=== PATIENT | female | born 1995 | race Caucasian/White ===

== ENCOUNTER 2017-05-16 21:40 | Emergency (ER) | payer MEDICAID ==
[~2017-05-16] VITALS: Ht 157.5 cm; Wt 83.9 kg
[~2017-05-16 21:40] MED LIST: CIPROFLOXACIN500 M2 ORAL; IBUPROFEN600 MG ORAL; NORCO 5-325 TA1 EACH ORAL
[2017-05-16 22:18] LABS: APPEARANCE,URINE SLIGHTLY CLOUDY; KETONES,URINE NEGATIVE (NEGATIVE); LEUKOCYTE ESTERASE ,URINE 3+ (NEGATIVE); NITRITE,URINE POSITIVE (NEGATIVE); PH,URINE 7 (4.5-8.0); PROTEIN,URINE 3+ (NEGATIVE); UROBILINOGEN,URINE NORMAL MG/DL (0.0-1.0)
[2017-05-16 22:30] LABS: RBC,URINE 20-30 /HPF (0 - 2); WBC,URINE 60-80 /HPF (0 - 2)
[2017-05-16 22:31] LABS: BACTERIA,URINE MODERATE /HPF; SQUAMOUS EPITHELIAL CELL,UR MODERATE /LPF (NONE/OCC)
[2017-05-16] MEDS ORDERED: KEFLEX500 MG ORAL (22:33)
[2017-05-16] MEDS ORDERED: ACETAMINOPHEN-1 EAC1 ORAL (22:33)
[2017-05-16 22:41] VITALS: BP 134/88
[2017-05-16] MEDS ORDERED: Cephalexin 500mg cap ORAL ONE (22:45)
--- NOTE | 2017-05-16 23:35 | Emergency Room Report ---
History of Present Illness General Chief Complaint: Lower Back Pain or Injury Source: Patient Present Illness HPI 21-year-old female presents ED complaining of left flank pain. States having pain on and off for the last 3 weeks. Worse today. 10 out of 10, sharp, nonradiating. Denies fevers or chills. Denies nausea or vomiting. Denies dysuria or hematuria. Denies any back injury. No other aggravating or leading factors. Denies any other associated symptoms Allergies: Coded Allergies: SULFA (SULFONAMIDE ANTIBIOTICS) (Unverified Allergy, Unknown, 12/24/14) Patient History Past Medical History: asthma Past Surgical History: none Pertinent Family History: none Social History: Denies: smoking, alcohol use, drug use Last Menstrual Period: may 14 Now: No : 2 Immunizations: UTD Reviewed Nursing Documentation: PMH: Agreed, PSxH: Agreed Nursing Documentation-PMH Hx Asthma: Yes Review of Systems All Other Systems: negative except mentioned in HPI Physical Exam Vital Signs Date Time Temp Pulse Resp B/P (MAP) Pulse Ox O2 Delivery O2 Flow Rate FiO2 05/16/17 21:42 98.4 77 20 134/88 98 Room Air Sp02 EP Interpretation: reviewed, normal General Appearance: no apparent distress, alert, GCS 15, non-toxic Head: normocephalic Eyes: bilateral eye normal inspection, bilateral eye PERRL ENT: normal ENT inspection Neck: normal inspection Respiratory: chest non-tender, lungs clear, normal breath sounds, speaking full sentences Cardiovascular #1: regular rate, rhythm, no edema Gastrointestinal: normal bowel sounds, non tender, soft, non-distended, no guarding, no rebound Rectal: deferred Genitourinary: CVA tenderness (L) Musculoskeletal: normal inspection Neurologic: alert, oriented x3, responsive, motor strength/tone normal, sensory intact, speech normal Psychiatric: judgement/insight normal, memory normal, mood/affect normal, no suicidal/homicidal ideation Skin: normal inspection Lymphatic: normal inspection Medical Decision Making Diagnostic Impression: Primary Impression: UTI (urinary tract infection) Qualified Codes: N10 - Acute pyelonephritis ER Course Hospital Course 21-year-old female presents to ED complaining of L flank pain Differential diagnoses include: UTI, muscle strain, pyelonephritis Clinical course Patient placed on stretcher. After initial history and physical I ordered UA, urine , motrin. UA + bacteria. clinically we will treat as pyelonephritis. given keflex in ED Diagnosis - UTI Stable and discharged home with prescriptions for Rx Keflex, Tylenol #3. Instructed to followup with PMD. Return to ED if symptoms recur or worsen Labs Test 05/16/17 21:54 Urine Color Pale yellow Urine Appearance Slightly cloudy Urine pH 7 (4.5-8.0) Urine Specific [place] 1.015 (1.005-1.035) Urine Protein 3+ (NEGATIVE) Urine Glucose (UA) Negative (NEGATIVE) Urine Ketones Negative (NEGATIVE) Urine Occult Blood 5+ (NEGATIVE) Urine Nitrite Positive (NEGATIVE) Urine Bilirubin Negative (NEGATIVE) Urine Urobilinogen Normal MG/DL (0.0-1.0) Urine Leukocyte Esterase 3+ (NEGATIVE) Urine RBC 20-30 /HPF (0 - 2) Urine WBC 60-80 /HPF (0 - 2) Urine Squamous Epithelial Cells Moderate /LPF (NONE/OCC) Urine Bacteria Moderate /HPF (NONE) Urine HCG, Qualitative Negative Last Vital Signs Date Time Temp Pulse Resp B/P (MAP) Pulse Ox O2 Delivery O2 Flow Rate FiO2 05/16/17 22:41 77 20 134/88 98 Room Air 05/16/17 22:41 98.4 Status: improved Disposition: HOME, SELF-CARE Condition: Stable Scripts Cephalexin* (KEFLEX*) 500 Mg Capsule 500 MG ORAL Q6H, #28 CAP 0 Refills Prov: KELLY FUNK M.D. 05/16/17 Acetaminophen With Codeine (T#3) (TYLENOL #3 TAB*) Y Tab 1 TAB ORAL Q8H Y for For Pain, #20 TAB Prov: KELLY FUNK M.D. 05/16/17 Referrals: [facility],REFERRING (PCP) Patient Instructions: Pyelonephritis, Adult KELLY FUNK M.D. May 16, 2017 23:35
== END 2017-05-16 22:40 | disposition home or self-care (01) ==
LOC: EMR 22:30
DX: N39.0 Urinary tract infection, site not specified (principal); Z88.2 Allergy status to sulfonamides
CPT/HCPCS: 81003; 81025; 87086; 87181; 99284

== ENCOUNTER 2017-05-30 22:17 | Inpatient (IN) | payer MEDICAID, OTHER ==
[~2017-05-30] VITALS: Ht 160 cm; Wt 83.9 kg
[~2017-05-30 22:17] MED LIST changes: +ACETAMINOPHEN-1 EAC1 ORAL; +KEFLEX500 MG ORAL
[2017-05-30] MEDS ORDERED: NKM (22:23)
[2017-05-30 22:25] VITALS: BP 102/68
--- NOTE | 2017-05-30 22:29 | Emergency Room Report ---
History of Present Illness General Chief Complaint: Lower Back Pain or Injury Source: Patient Present Illness HPI This is a 21-year-old female with no significant past medical history. She was here couple weeks ago for UTI. That resolved. She presents with chief complaint of lower back pain, mostly to left side radiating to the groin.. Onset was about a couple hours ago., With codeine not helping much. No fever or chills. No nausea no vomiting. Pain is localized the lower back without any radiation. Pain is 9/10. No incontinence of bowel or urine. No numbness. No urinary complaint the Allergies: Coded Allergies: SULFA (SULFONAMIDE ANTIBIOTICS) (Unverified Allergy, Unknown, 12/24/14) Patient History Past Medical History: see triage record, old chart reviewed Past Surgical History: none Pertinent Family History: none Social History: Denies: smoking Last Menstrual Period: 04/07/17 Now: No : 2 Para: 1 Immunizations: other Reviewed Nursing Documentation: PMH: Agreed, PSxH: Agreed Nursing Documentation-PMH Hx Asthma: Yes Review of Systems Eye: Denies: eye pain, blurred vision ENT: Denies: ear pain, nose congestion, throat swelling Respiratory: Denies: cough, shortness of breath Cardiovascular: Denies: chest pain, palpitations Gastrointestinal: Denies: abdominal pain, diarrhea, nausea, vomiting Musculoskeletal: Reports: back pain, Denies: joint pain Skin: Denies: rash Neurological: Denies: headache, numbness Endocrine: Denies: increased thirst, increased urine Hematologic/Lymphatic: Denies: easy bruising All Other Systems: negative except mentioned in HPI Physical Exam Vital Signs Date Time Temp Pulse Resp B/P (MAP) Pulse Ox O2 Delivery O2 Flow Rate FiO2 05/30/17 22:19 98.6 67 20 117/67 97 vitals normal Sp02 EP Interpretation: reviewed, normal General Appearance: well appearing, no apparent distress, alert Head: normocephalic, atraumatic Eyes: bilateral eye PERRL, bilateral eye EOMI ENT: hearing grossly normal, normal pharynx Neck: full range of motion, supple, no meningismus Respiratory: chest non-tender, lungs clear, normal breath sounds Cardiovascular #1: regular rate, rhythm, no murmur Gastrointestinal: normal bowel sounds, non tender, no mass, no organomegaly, no bruit, non-distended Musculoskeletal: back normal, gait/station normal, normal range of motion, tender - Diffuse tenderness to lower lumbar area. No percussive tenderness. No anesthesia. Neurologic: alert, oriented x3 Psychiatric: mood/affect normal Skin: warm/dry Medical Decision Making Diagnostic Impression: Primary Impression: UTI (urinary tract infection) Qualified Codes: N30.00 - Acute cystitis without hematuria Additional Impression: Ureteral calculus, left ER Course Patient present with left flank pain and has a pretty large 1 cm left ureteral pelvic junction stone with moderate hydronephrosis. There is also stranding. Urine showed possible UTI. Antibiotic started. She grew out Proteus couple weeks ago. Because an infected ureteral stone, will admit for IV antibiotics and urology consult. Dr. Parker will be admitting. I paged Dr. Kang, urologist, for consultation. Laboratory Tests Test 05/30/17 23:27 05/31/17 00:30 Urine Color Pale yellow Urine Appearance Slightly cloudy Urine pH 7 (4.5-8.0) Urine Specific [place] 1.010 (1.005-1.035) Urine Protein 2+ (NEGATIVE) H Urine Glucose (UA) Negative (NEGATIVE) Urine Ketones Negative (NEGATIVE) Urine Occult Blood 4+ (NEGATIVE) H Urine Nitrite Negative (NEGATIVE) Urine Bilirubin Negative (NEGATIVE) Urine Urobilinogen Normal MG/DL (0.0-1.0) Urine Leukocyte Esterase 2+ (NEGATIVE) H Urine RBC 40-60 /HPF (0 - 2) H Urine WBC Tntc /HPF (0 - 2) H Urine Squamous Epithelial Cells Moderate /LPF (NONE/OCC) H Urine Bacteria Few /HPF (NONE) Urine HCG, Qualitative Negative White Blood Count 19.9 K/UL (4.8-10.8) H Red Blood Count 3.93 M/UL (4.20-5.40) L Hemoglobin 11.8 G/DL (12.0-16.0) L Hematocrit 34.9 % (37.0-47.0) L Mean Corpuscular Volume 89 FL (80-99) Mean Corpuscular Hemoglobin 30.2 PG (27.0-31.0) Mean Corpuscular Hemoglobin Concent 34.0 G/DL (32.0-36.0) Red Cell Distribution Width 12.5 % (11.6-14.8) Platelet Count 362 K/UL (150-450) Mean Platelet Volume 6.8 FL (6.5-10.1) Neutrophils (%) (Auto) % (45.0-75.0) Lymphocytes (%) (Auto) % (20.0-45.0) Monocytes (%) (Auto) % (1.0-10.0) Eosinophils (%) (Auto) % (0.0-3.0) Basophils (%) (Auto) % (0.0-2.0) Sodium Level 139 MMOL/L (136-145) Potassium Level 3.9 MMOL/L (3.5-5.1) Chloride Level 105 MMOL/L (98-107) Carbon Dioxide Level 23 MMOL/L (21-32) Anion Gap 12 mmol/L (5-15) Blood Urea Nitrogen 19 mg/dL (7-18) H Creatinine 1.0 MG/DL (0.55-1.30) Estimat Glomerular Filtration Rate > 60 mL/min (>60) Glucose Level 112 MG/DL (74-106) H Calcium Level 8.5 MG/DL (8.5-10.1) Lab Results Impression labs with leukocytosis CT/MRI/US Diagnostic Results CT/MRI/US Diagnostic Results : Imaging Test Ordered: CT abdomen and pelvis Impression read by radiologist. 1 cm left ureteropelvic junction stone with moderate left hydronephrosis. Mild perinephric stranding. Last Vital Signs Date Time Temp Pulse Resp B/P (MAP) Pulse Ox O2 Delivery O2 Flow Rate FiO2 05/30/17 22:19 98.6 67 20 117/67 97 Status: improved Disposition: ADMITTED INPATIENT Condition: Serious RADHA MAURICIO M.D. May 30, 2017 22:29
[2017-05-30] MEDS ORDERED: Norco 5mg/325mg tab ORAL ONE (22:30)
[2017-05-30] MEDS ORDERED: Ketorolac 30mg Inj IV ONE (23:00)
[2017-05-30] MEDS ORDERED: Morphine Sulfate 4mg/ml Inj IVP ONE ×2 (23:15)
[2017-05-31] VITALS (7 sets, daily range): BP systolic 101–121; BP diastolic 62–77
[2017-05-31 00:06] LABS: APPEARANCE,URINE SLIGHTLY CLOUDY; KETONES,URINE NEGATIVE (NEGATIVE); LEUKOCYTE ESTERASE ,URINE 2+ (NEGATIVE); NITRITE,URINE NEGATIVE (NEGATIVE); PH,URINE 7 (4.5-8.0); PROTEIN,URINE 2+ (NEGATIVE); UROBILINOGEN,URINE NORMAL MG/DL (0.0-1.0)
[2017-05-31 00:07] LABS: BACTERIA,URINE FEW /HPF; RBC,URINE 40-60 /HPF (0 - 2); SQUAMOUS EPITHELIAL CELL,UR MODERATE /LPF (NONE/OCC); WBC,URINE TNTC /HPF (0 - 2)
[2017-05-31] MEDS ORDERED: cefTRIAXone 1 GM in NS 55 ML IVPB ONE (00:30)
[2017-05-31] MEDS ORDERED: Morphine Sulfate 4mg/ml Inj IVP ONE (00:30)
[2017-05-31 00:52] LABS: MEAN CORPUSCULAR HEMOGLOBIN 30.2 PG (27.0-31.0); MEAN CORPUSCULAR VOLUME 89 FL (80-99); MEAN PLATELET VOLUME 6.8 FL (6.5-10.1); PLATELET COUNT 362 K/UL (150-450); RED BLOOD COUNT 3.93 M/UL (4.20-5.40); RED CELL DISTRIBUTION WIDTH 12.5 % (11.6-14.8); WHITE BLOOD COUNT 19.9 K/UL (4.8-10.8)
[2017-05-31 01:06] LABS: ANION GAP 12 mmol/L (5-15); CALCIUM 8.5 MG/DL (8.5-10.1); CARBON DIOXIDE 23 MMOL/L (21-32); CHLORIDE 105 MMOL/L (98-107); GLOMERULAR FILTRATION RATE > 60 mL/min (>60); POTASSIUM 3.9 MMOL/L (3.5-5.1); SODIUM 139 MMOL/L (136-145)
[2017-05-31] MEDS ORDERED: HYDROmorphone 1mg/ml Carpuject IVP ONE (01:45)
[2017-05-31] MEDS ORDERED: Morphine Sulfate 2mg/ml Inj IVP PRN ×2 (04:00→04:30)
[2017-05-31] MEDS ORDERED: cefTRIAXone 1 GM in D5W 55 ML IVPB SCH (04:00)
[2017-05-31] MEDS ORDERED: HYDROmorphone 1mg/ml Carpuject IVP PRN ×2 (04:00→04:30)
[2017-05-31] MEDS: Heparin 5000 units/ml inj SUBQ SCH ×2 (08:32→21:22)
--- NOTE | 2017-05-31 10:09 | Diagnostic Imaging Report ---
Indication: Left-sided abdominal pain Technique: Spiral acquisitions obtained through the abdomen and pelvis. No oral or IV contrast utilized, per urinary stone protocol. Multiplanar reconstructions were generated. Total dose length product 970 mGycm. CTDIvol(s) 17 mGy. Dose reduction achieved using automated exposure control Comparison: None Findings: There is an 11 x 9 x 5 mm calculus at the left ureteropelvic junction. There is resultant moderate hydronephrosis, minimal perinephric fat stranding. There is considerable dilatation of the renal pelvis. Questionable tiny one or more upper pole intrarenal calculi are noted.. The ureter distal to the calculus is nondilated, and no distal ureteral calculi are identified. The right kidney contains a 5 mm lower pole calculus. No right hydronephrosis, hydroureter, or ureteral calculus demonstrated. Lack of IV contrast limits assessment of the renal parenchyma. No gross renal parenchymal mass or cyst demonstrated. Normal appendix. No evidence of diverticulosis or diverticulitis. No small bowel distention. No free or loculated intraperitoneal air or fluid is evident. There is a tiny fat-containing umbilical hernia The lack of IV contrast limits assessment of the other solid organs. The liver, gallbladder, bile ducts, pancreas, spleen, adrenals are unremarkable. No mesenteric retroperitoneal mass or adenopathy. No pelvic mass or adenopathy. The included lung bases are clear. The bones are unremarkable. Impression: Positive for 11 x 9 x 5 mm calculus at the left ureteropelvic junction. This results in moderate hydronephrosis Nonobstructive 5 mm right lower pole intrarenal calculus. Probable tiny left intrarenal calculi Incidental finding small fat-containing umbilical hernia This agrees with the preliminary interpretation provided overnight by [facility] teleradiology service. The CT scanner at [facility] is accredited by the [employer] and the scans are performed using protocols designed to limit radiation exposure to as low as reasonably achievable to attain images of sufficient resolution adequate for diagnostic evaluation.
--- NOTE | 2017-05-31 12:48 | Consultation ---
History of Present Illness General Date patient seen: May 31, 2017 Time patient seen: 13:03 Chief Complaint: Lower Back Pain or Injury Present Illness HPI 21 y/o F with hx of Asthma presents to ED on 05/30 with couple hours onset of lower back pain radiating to Left side and groin area; intensity 9/10 Denies f/c, n/v, urinary or bowel incontinence, numbness LMP 04/07/17 Of note patient seen in our ED on 05/16 and diagnosed with UTI and Rx Keflex 500mg qid for 7 days. U/a not done at that time but ucx grew >100K P. mirabilis (S Ancef, Cipro/levo, Ceftriaxone; R Bactrim) afebrile. leukocytosis to 19. u/a with significant pyuria. Allergies: Coded Allergies: SULFA (SULFONAMIDE ANTIBIOTICS) (Unverified Allergy, Unknown, 12/24/14) Medication History Scheduled Cephalexin* (Keflex*), 500 MG ORAL Q6H Ibuprofen* (Motrin*), 600 MG ORAL THREE TIMES A DAY No Known Medications* (NKM - No Known Medications*), 0 ., (Reported) Scheduled PRN Acetaminophen With Codeine (T#3) (Tylenol #3 Tab*), 1 TAB ORAL Q8H PRN for For Pain Patient History Healthcare decision maker Resuscitation status Full Code Advanced Directive on File Patient History Narrative Pmhx: as above SHx: Denies: smoking Fhx non contributory Review of Systems All Other Systems: negative except mentioned in HPI Physical Exam Physical Exam Narrative General Appearance: well appearing, no apparent distress, alert HEENT: normocephalic, atraumatic,bilateral eye PERRL, bilateral eye EOMI, normal pharynx Neck: full range of motion, supple, no meningismus Respiratory: chest non-tender, lungs clear, normal breath sounds Cardiovascular : regular rate, rhythm, no murmur Gastrointestinal: normal bowel sounds, non tender, no mass, no organomegaly, no bruit, non-distended Musculoskeletal: back normal, gait/station normal, normal range of motion, tender - Diffuse tenderness to lower lumbar area. No percussive tenderness. No anesthesia. Neurologic: alert, oriented x3 Skin: warm/dry Last 24 Hour Vital Signs Date Time Temp Pulse Resp B/P (MAP) Pulse Ox O2 Delivery O2 Flow Rate FiO2 11/27/17 10:10 98.2 05/31/17 08:00 98.3 90 18 113/62 98 Room Air 05/31/17 04:00 98.2 98 20 114/72 98 Room Air 05/31/17 03:30 98.6 105 20 120/68 99 Room Air 05/31/17 03:09 98.6 105 20 120/68 99 Room Air 05/31/17 02:21 98.6 05/31/17 01:14 98.6 05/31/17 01:12 98.6 85 17 121/77 100 Room Air 05/30/17 23:44 98.6 05/30/17 23:32 98.6 05/30/17 22:40 98.6 05/30/17 22:25 98.6 91 16 102/68 100 Room Air 05/30/17 22:19 98.6 67 20 117/67 97 Laboratory Tests Test 05/30/17 23:27 05/31/17 00:30 Urine Color Pale yellow Urine Appearance Slightly cloudy Urine pH 7 (4.5-8.0) Urine Specific [place] 1.010 (1.005-1.035) Urine Protein 2+ (NEGATIVE) H Urine Glucose (UA) Negative (NEGATIVE) Urine Ketones Negative (NEGATIVE) Urine Occult Blood 4+ (NEGATIVE) H Urine Nitrite Negative (NEGATIVE) Urine Bilirubin Negative (NEGATIVE) Urine Urobilinogen Normal MG/DL (0.0-1.0) Urine Leukocyte Esterase 2+ (NEGATIVE) H Urine RBC 40-60 /HPF (0 - 2) H Urine WBC Tntc /HPF (0 - 2) H Urine Squamous Epithelial Cells Moderate /LPF (NONE/OCC) H Urine Bacteria Few /HPF (NONE) Urine HCG, Qualitative Negative White Blood Count 19.9 K/UL (4.8-10.8) H Red Blood Count 3.93 M/UL (4.20-5.40) L Hemoglobin 11.8 G/DL (12.0-16.0) L Hematocrit 34.9 % (37.0-47.0) L Mean Corpuscular Volume 89 FL (80-99) Mean Corpuscular Hemoglobin 30.2 PG (27.0-31.0) Mean Corpuscular Hemoglobin Concent 34.0 G/DL (32.0-36.0) Red Cell Distribution Width 12.5 % (11.6-14.8) Platelet Count 362 K/UL (150-450) Mean Platelet Volume 6.8 FL (6.5-10.1) Neutrophils (%) (Auto) % (45.0-75.0) Lymphocytes (%) (Auto) % (20.0-45.0) Monocytes (%) (Auto) % (1.0-10.0) Eosinophils (%) (Auto) % (0.0-3.0) Basophils (%) (Auto) % (0.0-2.0) Sodium Level 139 MMOL/L (136-145) Potassium Level 3.9 MMOL/L (3.5-5.1) Chloride Level 105 MMOL/L (98-107) Carbon Dioxide Level 23 MMOL/L (21-32) Anion Gap 12 mmol/L (5-15) Blood Urea Nitrogen 19 mg/dL (7-18) H Creatinine 1.0 MG/DL (0.55-1.30) Estimat Glomerular Filtration Rate > 60 mL/min (>60) Glucose Level 112 MG/DL (74-106) H Calcium Level 8.5 MG/DL (8.5-10.1) Height (Feet): 5 Height (Inches): 3.00 Weight (Pounds): 185 Medications Current Medications Medications (Trade) Dose Ordered Sig/Olesya Route PRN Reason Start Time Stop Time Status Last Admin Dose Admin Ceftriaxone Sodium 1 gm/ Dextrose 55 ml @ 110 mls/hr Q24H IVPB 06/01/17 04:00 06/08/17 03:59 Heparin Sodium (Porcine) (Heparin 5000 units/ml) 5,000 units EVERY 12 HOURS SUBQ 05/31/17 09:00 06/30/17 08:59 05/31/17 08:32 Hydromorphone HCl (Dilaudid) 1 mg Q8H PRN IVP Severe Pain (Pain Scale 7-10) 05/31/17 04:30 06/07/17 03:59 05/31/17 08:31 Morphine Sulfate (Morphine Sulfate) 2 mg Q8H PRN IVP Moderate Pain (Pain Scale 4-6) 05/31/17 04:30 06/07/17 03:59 Ondansetron HCl (Zofran) 4 mg Q4H PRN IVP Nausea & Vomiting 05/31/17 04:15 06/30/17 04:14 Assessment/Plan Assessment/Plan Abx: Ceftriaxone 05/31- Assesment: Infected obstructive L kidney stone w/ moderate hydronephrosis -CT abd/p; There is an 11 x 9 x 5 mm calculus at the left ureteropelvic junction. There is resultant moderate hydronephrosis, minimal perinephric fat stranding. There is considerable dilatation of the renal pelvis. Questionable tiny one or more upper pole intrarenal calculi are noted.. The ureter distal to the calculus is nondilated, and no distal ureteral calculi are identified. The right kidney contains a 5 mm lower pole calculus. No right hydronephrosis, hydroureter, or ureteral calculus demonstrated. Lack of IV contrast limits assessment of the renal parenchyma. No gross renal parenchymal mass or cyst demonstrated. Normal appendix. No evidence of diverticulosis or diverticulitis. No small bowel distention. No free or loculated intraperitoneal air or fluid is evident. There is a tiny fat-containing umbilical hernia -u/a WBC TNCT, nit neg, leuk +2,ucx P Leukocytosis -2ry to above -afebrile Recent Proteus UTI s/p Rx -ucx 05/16 >P. mirabilis (S Ancef, Ceftriaxone, Cipro/levo; R bactrim) Hx of asthma Plan -Continue Ceftriaxone #2 but increase dose to 2g daily -low threshold to switch to Ertapenem if febrile, worsening leukocytosis or HD unstable to cover for ESBL as recent rx with Cephalosporin and Proteus isolated from previous Ucx. -f/u cx -Uro evaluation -Monitor CBC/BMP, temperatures Thank you for this consultation. Will continue to follow along with you. Discussed with Reanna Bell M.D. May 31, 2017 12:48
--- NOTE | 2017-05-31 13:37 | History & Physical ---
History and Physical History & Physicial patient is seen and examined. Full Dictation completed Kim Suárez MD May 31, 2017 13:37
--- NOTE | 2017-05-31 13:39 | General Progress Note ---
Assessment/Plan Status: stable Assessment/Plan 1- SIRS 2- PyeloNephritis 3- Lt UPJ, Obstructing renal calculi 4- Anemia Plan: ID Uro are consulted Subjective ROS Limited/Unobtainable: Yes Allergies: Coded Allergies: SULFA (SULFONAMIDE ANTIBIOTICS) (Unverified Allergy, Unknown, 12/24/14) Objective Last 24 Hour Vital Signs Date Time Temp Pulse Resp B/P (MAP) Pulse Ox O2 Delivery O2 Flow Rate FiO2 05/31/17 10:10 98.2 05/31/17 08:00 98.3 90 18 113/62 98 Room Air 05/31/17 04:00 98.2 98 20 114/72 98 Room Air 05/31/17 03:30 98.6 105 20 120/68 99 Room Air 05/31/17 03:09 98.6 105 20 120/68 99 Room Air 05/31/17 02:21 98.6 05/31/17 01:14 98.6 05/31/17 01:12 98.6 85 17 121/77 100 Room Air 05/30/17 23:44 98.6 05/30/17 23:32 98.6 05/30/17 22:40 98.6 05/30/17 22:25 98.6 91 16 102/68 100 Room Air 05/30/17 22:19 98.6 67 20 117/67 97 Laboratory Tests 05/30/17 23:27: Urine Color Pale yellow, Urine Appearance Slightly cloudy, Urine pH 7, Urine Specific [place] 1.010, Urine Protein 2+H, Urine Glucose (UA) Negative, Urine Ketones Negative, Urine Occult Blood 4+H, Urine Nitrite Negative, Urine Bilirubin Negative, Urine Urobilinogen Normal, Urine Leukocyte Esterase 2+H, Urine RBC 40-60H, Urine WBC TntcH, Urine Squamous Epithelial Cells ModerateH, Urine Bacteria Few, Urine HCG, Qualitative Negative 05/31/17 00:30: White Blood Count 19.9H, Red Blood Count 3.93L, Hemoglobin 11.8L, Hematocrit 34.9L, Mean Corpuscular Volume 89, Mean Corpuscular Hemoglobin 30.2, Mean Corpuscular Hemoglobin Concent 34.0, Red Cell Distribution Width 12.5, Platelet Count 362, Mean Platelet Volume 6.8, Neutrophils (%) (Auto) , Lymphocytes (%) ( Auto) , Monocytes (%) (Auto) , Eosinophils (%) (Auto) , Basophils (%) (Auto) , Sodium Level 139, Potassium Level 3.9, Chloride Level 105, Carbon Dioxide Level 23, Anion Gap 12, Blood Urea Nitrogen 19H, Creatinine 1.0, Estimat Glomerular Filtration Rate > 60, Glucose Level 112H, Calcium Level 8.5 Height (Feet): 5 Height (Inches): 3.00 Weight (Pounds): 185 General Appearance: WD/WN EENT: PERRL/EOMI Neck: supple Cardiovascular: normal rate Respiratory/Chest: lungs clear Abdomen: no organomegaly, other - positve for CVA tenderness Extremities: non-tender Neurologic: ear specialist II-XII grossly normal Kim Suárez MD May 31, 2017 13:39
--- NOTE | 2017-05-31 15:15 | History and Physical Report ---
DATE OF ADMISSION: 05/31/2017 SOURCE OF INFORMATION: Patient and EMR. HISTORY OF PRESENT ILLNESS: The patient is a 21-year-old female. The patient reported abdominal pain with radiation to the flanks. The patient denies any fever or chills. Denies any vaginal discharges. The patient is complaining of mild grade fever. HOME MEDICATIONS: Including but not limited to Keflex and Motrin. PAST SURGICAL HISTORY: None, cannot be verified. ALLERGIES: Sulfa. FAMILY HISTORY: Reviewed and noncontributory. SOCIAL HISTORY: The patient denies history of smoking, alcohol abuse, or drug abuse. REVIEW OF SYSTEMS: All 12 elements of review of systems reviewed with the patient. Pertinent positive and negative reported. PHYSICAL EXAMINATION: VITAL SIGNS: Blood pressure 110/80, temperature 98.2, pulse oximetry 98% on room air. HEAD AND NECK: Atraumatic and normocephalic. CHEST: Clear to auscultation. HEART: S1 and S2. Regular rate and rhythm. ABDOMEN: Soft. No organomegaly. Positive for costovertebral angle tenderness. NEUROLOGIC: Awake, alert, and oriented x3. LABORATORY AND DIAGNOSTIC DATA: Labs dated 05/31/2017 shows WBC 19.9, hemoglobin 11.8, platelets 362. Sodium 139, potassium 3.9, BUN 19, creatinine 1, glucose 112. Urine is positive for the bacteria and positive for 2 + protein, and positive for WBC. ASSESSMENT AND PLAN: 1. Systemic inflammatory response syndrome. 2. Pyelonephritis, acute. 3. Anemia. 4. Gastrointestinal and deep vein thrombosis prophylaxis. 5. Partially obstructive left-sided UP obstruction. PLAN OF CARE: 1. Continue the current antibiotic regimen. 2. Infectious disease and Urology has been consulted. Kim Suárez M.D. DR: Zana JOB#: [id number] CC: [email or web address]
[2017-05-31] MEDS: HYDROmorphone 1mg/ml Carpuject IVP PRN ×2 (16:22→22:44)
[2017-05-31] MEDS ORDERED: cefTRIAXone 1gm/D5W 55ml IVPB ONE ×2 (17:00)
--- NOTE | 2017-05-31 19:00 | Consultation ---
DATE OF CONSULTATION: 05/31/2017 UROLOGY CONSULTATION CONSULTING PHYSICIAN: Elder Sow M.D. ATTENDING PHYSICIAN/CONSULTING PHYSICIAN: Kim Suárez M.D. CHIEF COMPLAINT/HISTORY OF PRESENT ILLNESS: I was asked by Dr. Suárez to evaluate this very pleasant 21-year-old, female regarding a history of a left large UPJ stone with hydronephrosis, colic, and urinary tract infection secondary to same. Briefly, the patient was seen earlier in the month in the emergency room with abdominal pain. She was noted to have a urinary tract infection and the pain was thought to be from the same. She was treated with antibiotics and discharged. She continued to have on and off left abdominal pain and returned to the hospital early this morning with the same. At this time, a CT scan was done revealing an 11 mm stone at the left UPJ with hydronephrosis secondary to same as well as a 5 mm nonobstructing right renal stone. Given the above, I was asked to evaluate the patient. The patient also was diagnosed with recurrent urinary tract infection, was started on Rocephin for the same. PAST MEDICAL HISTORY: 1. Urinary tract infection. 2. Kidney stone. PAST SURGICAL HISTORY: None. MEDICATIONS: Please see chart for current medication administration details. ALLERGIES: Sulfa drugs. SOCIAL HISTORY: Unremarkable for tobacco, alcohol, or drug use. FAMILY HISTORY: Noncontributory. REVIEW OF SYSTEMS: A 12-system review of systems is essentially unremarkable outside what was described above. PHYSICAL EXAMINATION: GENERAL: The patient is a young female, awake, alert, oriented x4, pleasant, and in no obvious distress. HEENT: NC/AT. EOMI. Oropharynx clear. NECK: Supple. Full range of motion. CHEST: Within normal limits. ABDOMEN: Soft, obese, nontender, and nondistended. EXTREMITIES: Warm and well perfused. No cyanosis, clubbing, or edema. BACK: No CVA tenderness to percussion on the right side. Left mild CVA tenderness. LABORATORY DATA: White blood cell count 19.9, hematocrit 34.9, and platelets 362. Sodium 139, potassium 3.9, chloride 105, bicarbonate 23, BUN 19, creatinine 1.0, glucose 112, and calcium 8.5. Urinalysis, specific gravity 1.010 and pH 7.0. Dip test notable for 2+ protein, 4+ occult blood, and 2+ leukocyte esterase. Microanalysis with 40 to 60 red blood cells per high-power field, too numerous to count white blood cells per high-power field, and few bacteria seen. Urine is negative. DIAGNOSTIC IMAGING: CT scan of the abdomen and pelvis reveals an 11 x 9 x 5 mm calculus at the left ureteropelvic junction. This resulted in moderate hydronephrosis. There is a nonobstructing 5 mm right lower pole stone. There is an incidental small fat containing umbilical hernia. ASSESSMENT AND PLAN: In summary, the patient is a 21-year-old female with a history of the left ureteropelvic junction stone with hydronephrosis and colic secondary to same. She was also discovered to have evidence of urinary tract infection, was started on antibiotics. Physical exam is notable for mild costovertebral angle tenderness. Laboratory data reveals evidence of possible urinary tract infection and a highly increased white blood cell count. Diagnostic imaging reveals a stone as described above. I discussed these findings today with the patient at the bedside. She will need treatment of her stone given her discomfort and her recurrent trips to the OR. I will ensure that she is cleared from an ID standpoint prior to planning for the same. When she is cleared, we will plan for ureteroscopy with laser lithotripsy and double-J stent placement. The benefits and risks were discussed with the patient and informed consent was obtained. In the meantime, she should be kept on antibiotics and pain medicine as needed. Thank you for allowing me to participate in the care of this nice lady. Please do not hesitate to contact me with any questions that you may further have regarding her care. I will be happy to see her with you as needed. Elder Sow M.D. DR: BRAIN JOB#: [id number] CC:
[2017-06-01] VITALS: BP 124/73
[2017-06-01 04:00] VITALS: BP 109/54
[2017-06-01] MEDS ORDERED: cefTRIAXone 1 GM in D5W 55 ML IVPB SCH (04:00)
[2017-06-01] MEDS: cefTRIAXone 2 GM in D5W 55 ML IVPB SCH (04:07)
[2017-06-01] MEDS: HYDROmorphone 1mg/ml Carpuject IVP PRN ×3 (06:17→18:37)
[2017-06-01 06:52] LABS: BASOPHILS % (AUTO) 0.6 % (0.0-2.0); EOSINOPHILS % (AUTO) 1.8 % (0.0-3.0); LYMPHOCYTES % (AUTO) 21.1 % (20.0-45.0); MEAN CORPUSCULAR HEMOGLOBIN 29.8 PG (27.0-31.0); MEAN CORPUSCULAR HGB CONC 33.6 G/DL (32.0-36.0); MEAN CORPUSCULAR VOLUME 88 FL (80-99); MEAN PLATELET VOLUME 6.5 FL (6.5-10.1); MONOCYTES % (AUTO) 8.9 % (1.0-10.0); NEUTROPHILS % (AUTO) 67.7 % (45.0-75.0); PLATELET COUNT 289 K/UL (150-450); RED BLOOD COUNT 3.57 M/UL (4.20-5.40); RED CELL DISTRIBUTION WIDTH 12.1 % (11.6-14.8); WHITE BLOOD COUNT 8.2 K/UL (4.8-10.8)
[2017-06-01 07:02] LABS: ALANINE AMINOTRANSFERASE 16 U/L (12-78); ANION GAP 4 mmol/L (5-15); ASPARTATE AMINO TRANSFERASE 15 U/L (15-37); CALCIUM 8.5 MG/DL (8.5-10.1); CARBON DIOXIDE 28 MMOL/L (21-32); CHLORIDE 106 MMOL/L (98-107); CREATININE 0.7 MG/DL (0.55-1.30); GLOMERULAR FILTRATION RATE > 60 mL/min (>60); POTASSIUM 3.6 MMOL/L (3.5-5.1); SODIUM 138 MMOL/L (136-145); TOTAL PROTEIN 6.4 G/DL (6.4-8.2)
[2017-06-01 08:00] VITALS: BP 127/84
[2017-06-01] MEDS: Heparin 5000 units/ml inj SUBQ SCH ×2 (08:17→21:29)
--- NOTE | 2017-06-01 11:51 | Infectious Diseases Prog Note ---
Assessment/Plan Assessment/Plan Abx: Ceftriaxone 05/31- Assesment: Infected obstructive L kidney stone w/ moderate hydronephrosis -CT abd/p; There is an 11 x 9 x 5 mm calculus at the left ureteropelvic junction. There is resultant moderate hydronephrosis, minimal perinephric fat stranding. There is considerable dilatation of the renal pelvis. Questionable tiny one or more upper pole intrarenal calculi are noted.. The ureter distal to the calculus is nondilated, and no distal ureteral calculi are identified. The right kidney contains a 5 mm lower pole calculus. No right hydronephrosis, hydroureter, or ureteral calculus demonstrated. Lack of IV contrast limits assessment of the renal parenchyma. No gross renal parenchymal mass or cyst demonstrated. Normal appendix. No evidence of diverticulosis or diverticulitis. No small bowel distention. No free or loculated intraperitoneal air or fluid is evident. There is a tiny fat-containing umbilical hernia -u/a WBC TNCT, nit neg, leuk +2,ucx 30-40K GNB (id and sensi pending) Leukocytosis -2ry to above- resolved -afebrile Recent Proteus UTI s/p Rx -ucx 05/16 >P. mirabilis (S Ancef, Ceftriaxone, Cipro/levo; R bactrim) Hx of asthma Plan -Continue Ceftriaxone #3 pending ID +sensi GNR ucx -low threshold to switch to Ertapenem if febrile, worsening leukocytosis or HD unstable to cover for ESBL as recent rx with Cephalosporin and Proteus isolated from previous Ucx. -f/u cx -cleared from ID to proceed with cystoscopy and double J stent placements tomorrow -Monitor CBC/BMP, temperatures Thank you for this consultation. Will continue to follow along with you. Discussed with RN and Dr Sow. Subjective Allergies: Coded Allergies: SULFA (SULFONAMIDE ANTIBIOTICS) (Unverified Allergy, Unknown, 12/24/14) Subjective afebrile leukocytosis resolved Objective Vital Signs Last 24 Hour Vital Signs Date Time Temp Pulse Resp B/P (MAP) Pulse Ox O2 Delivery O2 Flow Rate FiO2 06/01/17 08:00 97.2 91 18 127/84 06/01/17 04:00 98.1 78 20 109/54 98 Room Air 06/01/17 00:00 97.7 73 20 124/73 99 Room Air 05/31/17 20:00 98.1 73 20 110/68 Room Air 05/31/17 16:52 98.2 05/31/17 16:00 98.4 76 19 110/67 99 Room Air 05/31/17 12:00 98.2 81 19 101/63 98 Room Air Height (Feet): 5 Height (Inches): 3.00 Weight (Pounds): 185 Objective General Appearance: well appearing, no apparent distress, alert HEENT: normocephalic, atraumatic,bilateral eye PERRL, bilateral eye EOMI, normal pharynx Neck: full range of motion, supple, no meningismus Respiratory: chest non-tender, lungs clear, normal breath sounds Cardiovascular : regular rate, rhythm, no murmur Gastrointestinal: normal bowel sounds, non tender, no mass, no organomegaly, no bruit, non-distended Musculoskeletal: back normal, gait/station normal, normal range of motion, tender - Diffuse tenderness to lower lumbar area. No percussive tenderness. No anesthesia. Neurologic: alert, oriented x3 Skin: warm/dry Microbiology Date/Time Source Procedure Growth Status 05/30/17 23:27 Urine,Clean Catch Urine Culture - Preliminary Gram Negative Bacillus 1 Resulted Laboratory Tests Test 06/01/17 05:20 White Blood Count 8.2 K/UL (4.8-10.8) # Red Blood Count 3.57 M/UL (4.20-5.40) L Hemoglobin 10.6 G/DL (12.0-16.0) L Hematocrit 31.6 % (37.0-47.0) L Mean Corpuscular Volume 88 FL (80-99) Mean Corpuscular Hemoglobin 29.8 PG (27.0-31.0) Mean Corpuscular Hemoglobin Concent 33.6 G/DL (32.0-36.0) Red Cell Distribution Width 12.1 % (11.6-14.8) Platelet Count 289 K/UL (150-450) Mean Platelet Volume 6.5 FL (6.5-10.1) Neutrophils (%) (Auto) 67.7 % (45.0-75.0) Lymphocytes (%) (Auto) 21.1 % (20.0-45.0) Monocytes (%) (Auto) 8.9 % (1.0-10.0) Eosinophils (%) (Auto) 1.8 % (0.0-3.0) Basophils (%) (Auto) 0.6 % (0.0-2.0) Sodium Level 138 MMOL/L (136-145) Potassium Level 3.6 MMOL/L (3.5-5.1) Chloride Level 106 MMOL/L (98-107) Carbon Dioxide Level 28 MMOL/L (21-32) Anion Gap 4 mmol/L (5-15) L Blood Urea Nitrogen 12 mg/dL (7-18) Creatinine 0.7 MG/DL (0.55-1.30) Estimat Glomerular Filtration Rate > 60 mL/min (>60) Glucose Level 88 MG/DL (74-106) Calcium Level 8.5 MG/DL (8.5-10.1) Total Bilirubin 0.3 MG/DL (0.2-1.0) Aspartate Amino Transf (AST/SGOT) 15 U/L (15-37) Alanine Aminotransferase (ALT/SGPT) 16 U/L (12-78) Alkaline Phosphatase 85 U/L (46-116) Total Protein 6.4 G/DL (6.4-8.2) Albumin 3.2 G/DL (3.4-5.0) L Globulin 3.2 g/dL Albumin/Globulin Ratio 1.0 (1.0-2.7) Current Medications Medications (Trade) Dose Ordered Sig/Loesya Route PRN Reason Start Time Stop Time Status Last Admin Dose Admin Ceftriaxone Sodium 2 gm/ Dextrose 55 ml @ 110 mls/hr Q24H IVPB 06/01/17 04:00 06/08/17 03:59 06/01/17 04:07 Heparin Sodium (Porcine) (Heparin 5000 units/ml) 5,000 units EVERY 12 HOURS SUBQ 05/31/17 09:00 06/30/17 08:59 06/01/17 08:17 Hydromorphone HCl (Dilaudid) 1 mg Q6H PRN IVP Severe Pain (Pain Scale 7-10) 05/31/17 15:45 06/07/17 03:59 06/01/17 06:17 Morphine Sulfate (Morphine Sulfate) 2 mg Q8H PRN IVP Moderate Pain (Pain Scale 4-6) 05/31/17 04:30 06/07/17 03:59 Ondansetron HCl (Zofran) 4 mg Q4H PRN IVP Nausea & Vomiting 05/31/17 04:15 06/30/17 04:14 Reanna Dawson M.D. Jun 01, 2017 11:51
[2017-06-01 12:00] VITALS: BP 125/65
[2017-06-01 16:00] VITALS: BP 111/82
[2017-06-01 20:00] VITALS: BP 120/83
--- NOTE | 2017-06-01 23:18 | General Progress Note ---
Assessment/Plan Status: stable Assessment/Plan 1. Systemic inflammatory response syndrome. 2. Pyelonephritis, acute. 3. Anemia. 4. Gastrointestinal and deep vein thrombosis prophylaxis. 5. Obstructive left-sided UPJ obstruction. following notes are reviewed ID Uro proceed with Lithotripsy and Uretheral scope on Subjective ROS Limited/Unobtainable: No Genitourinary: Reports: flank pain Allergies: Coded Allergies: SULFA (SULFONAMIDE ANTIBIOTICS) (Unverified Allergy, Unknown, 12/24/14) Objective Last 24 Hour Vital Signs Date Time Temp Pulse Resp B/P (MAP) Pulse Ox O2 Delivery O2 Flow Rate FiO2 06/01/17 20:00 97.9 85 18 120/83 99 06/01/17 16:00 97.4 90 18 111/82 98 06/01/17 12:00 97.0 65 18 125/65 06/01/17 08:00 97.2 91 18 127/84 06/01/17 04:00 98.1 78 20 109/54 98 Room Air 06/01/17 00:00 97.7 73 20 124/73 99 Room Air Intake and Output 06/01/17 06/02/17 19:00 07:00 Intake Total 700 ml Balance 700 ml Intake Oral 700 ml # Voids 3 Laboratory Tests 06/01/17 05:20: White Blood Count 8.2#, Red Blood Count 3.57L, Hemoglobin 10.6L, Hematocrit 31.6L, Mean Corpuscular Volume 88, Mean Corpuscular Hemoglobin 29.8, Mean Corpuscular Hemoglobin Concent 33.6, Red Cell Distribution Width 12.1, Platelet Count 289, Mean Platelet Volume 6.5, Neutrophils (%) (Auto) 67.7, Lymphocytes (% ) (Auto) 21.1, Monocytes (%) (Auto) 8.9, Eosinophils (%) (Auto) 1.8, Basophils ( %) (Auto) 0.6, Sodium Level 138, Potassium Level 3.6, Chloride Level 106, Carbon Dioxide Level 28, Anion Gap 4L, Blood Urea Nitrogen 12, Creatinine 0.7, Estimat Glomerular Filtration Rate > 60, Glucose Level 88, Calcium Level 8.5, Total Bilirubin 0.3, Aspartate Amino Transf (AST/SGOT) 15, Alanine Aminotransferase (ALT/SGPT) 16, Alkaline Phosphatase 85, Total Protein 6.4, Albumin 3.2L, Globulin 3.2, Albumin/Globulin Ratio 1.0 Height (Feet): 5 Height (Inches): 3.00 Weight (Pounds): 185 General Appearance: no apparent distress EENT: PERRL/EOMI Neck: supple Cardiovascular: normal rate Respiratory/Chest: lungs clear Abdomen: other - CVA tenderness Extremities: non-tender Neurologic: senior controls analyst II-XII grossly normal Kim Suárez MD Jun 01, 2017 23:18
[2017-06-02] VITALS: BP 121/78
[2017-06-02] MEDS: HYDROmorphone 1mg/ml Carpuject IVP PRN ×3 (01:15→14:25)
[2017-06-02] MEDS: cefTRIAXone 2 GM in D5W 55 ML IVPB SCH (03:09)
[2017-06-02 04:00] VITALS: BP 102/58
[2017-06-02 07:17] LABS: BASOPHILS % (AUTO) 0.7 % (0.0-2.0); EOSINOPHILS % (AUTO) 1.4 % (0.0-3.0); LYMPHOCYTES % (AUTO) 19.7 % (20.0-45.0); MEAN CORPUSCULAR HEMOGLOBIN 29.6 PG (27.0-31.0); MEAN CORPUSCULAR HGB CONC 33.2 G/DL (32.0-36.0); MEAN CORPUSCULAR VOLUME 89 FL (80-99); MEAN PLATELET VOLUME 6.6 FL (6.5-10.1); MONOCYTES % (AUTO) 9.7 % (1.0-10.0); NEUTROPHILS % (AUTO) 68.6 % (45.0-75.0); PLATELET COUNT 364 K/UL (150-450); RED BLOOD COUNT 3.83 M/UL (4.20-5.40); RED CELL DISTRIBUTION WIDTH 12.1 % (11.6-14.8); WHITE BLOOD COUNT 8.9 K/UL (4.8-10.8)
[2017-06-02 07:38] LABS: ALANINE AMINOTRANSFERASE 16 U/L (12-78); ALBUMIN/GLOBULIN RATIO 0.9 (1.0-2.7); ANION GAP 7 mmol/L (5-15); ASPARTATE AMINO TRANSFERASE 14 U/L (15-37); CALCIUM 8.8 MG/DL (8.5-10.1); CARBON DIOXIDE 28 MMOL/L (21-32); CHLORIDE 104 MMOL/L (98-107); CREATININE 0.7 MG/DL (0.55-1.30); GLOMERULAR FILTRATION RATE > 60 mL/min (>60); POTASSIUM 3.8 MMOL/L (3.5-5.1); SODIUM 138 MMOL/L (136-145)
[2017-06-02 08:00] VITALS: BP 118/72
[2017-06-02] MEDS: Heparin 5000 units/ml inj SUBQ SCH ×2 (08:45→21:05)
--- NOTE | 2017-06-02 11:28 | Infectious Diseases Prog Note ---
Assessment/Plan Assessment/Plan Abx: Ceftriaxone 05/31- Assesment: Infected obstructive L kidney stone w/ moderate hydronephrosis -CT abd/p; There is an 11 x 9 x 5 mm calculus at the left ureteropelvic junction. There is resultant moderate hydronephrosis, minimal perinephric fat stranding. There is considerable dilatation of the renal pelvis. Questionable tiny one or more upper pole intrarenal calculi are noted.. The ureter distal to the calculus is nondilated, and no distal ureteral calculi are identified. The right kidney contains a 5 mm lower pole calculus. No right hydronephrosis, hydroureter, or ureteral calculus demonstrated. Lack of IV contrast limits assessment of the renal parenchyma. No gross renal parenchymal mass or cyst demonstrated. Normal appendix. No evidence of diverticulosis or diverticulitis. No small bowel distention. No free or loculated intraperitoneal air or fluid is evident. There is a tiny fat-containing umbilical hernia -u/a WBC TNCT, nit neg, leuk +2,ucx 30-40K P. mirabilis (S. Ceftriaxone, Cipro/ levo; R amp, bactrim) Leukocytosis -2ry to above- resolved -afebrile Recent Proteus UTI s/p Rx -ucx 05/16 >P. mirabilis (S Ancef, Ceftriaxone, Cipro/levo; R bactrim) Hx of asthma Plan -Continue Ceftriaxone #/-14 for infected kidney stone/complicated UTI; upon discharge can be transition to PO cipro or Cefdinir. -low threshold to switch to Ertapenem if febrile, worsening leukocytosis or HD unstable to cover for ESBL inducibility of Proteus sp -cleared from ID to proceed with cystoscopy and double J stent placement -Monitor CBC/BMP, temperatures Thank you for this consultation. Will continue to follow along with you. Discussed with RN and Dr Sow. Subjective Allergies: Coded Allergies: SULFA (SULFONAMIDE ANTIBIOTICS) (Unverified Allergy, Unknown, 12/24/14) Subjective afebrile no leukocytosis pain improving Objective Vital Signs Last 24 Hour Vital Signs Date Time Temp Pulse Resp B/P (MAP) Pulse Ox O2 Delivery O2 Flow Rate FiO2 06/02/17 08:16 98.0 06/02/17 08:00 97.9 79 18 118/72 98 Room Air 06/02/17 04:00 98.0 74 17 102/58 98 06/02/17 00:00 98.9 88 17 121/78 98 06/01/17 20:00 97.9 85 18 120/83 99 06/01/17 16:00 97.4 90 18 111/82 98 06/01/17 12:00 97.0 65 18 125/65 Height (Feet): 5 Height (Inches): 3.00 Weight (Pounds): 185 Objective General Appearance: well appearing, no apparent distress, alert HEENT: normocephalic, atraumatic,bilateral eye PERRL, bilateral eye EOMI, normal pharynx Neck: full range of motion, supple, no meningismus Respiratory: chest non-tender, lungs clear, normal breath sounds Cardiovascular : regular rate, rhythm, no murmur Gastrointestinal: normal bowel sounds, non tender, no mass, no organomegaly, no bruit, non-distended Musculoskeletal: back normal, gait/station normal, normal range of motion, tender - Diffuse tenderness to lower lumbar area; imporving. No percussive tenderness. No anesthesia. Neurologic: alert, oriented x3 Skin: warm/dry Microbiology Date/Time Source Procedure Growth Status 05/30/17 23:27 Urine,Clean Catch Urine Culture - Final Proteus Mirabilis Complete Laboratory Tests Test 06/02/17 04:50 White Blood Count 8.9 K/UL (4.8-10.8) Red Blood Count 3.83 M/UL (4.20-5.40) L Hemoglobin 11.4 G/DL (12.0-16.0) L Hematocrit 34.2 % (37.0-47.0) L Mean Corpuscular Volume 89 FL (80-99) Mean Corpuscular Hemoglobin 29.6 PG (27.0-31.0) Mean Corpuscular Hemoglobin Concent 33.2 G/DL (32.0-36.0) Red Cell Distribution Width 12.1 % (11.6-14.8) Platelet Count 364 K/UL (150-450) Mean Platelet Volume 6.6 FL (6.5-10.1) Neutrophils (%) (Auto) 68.6 % (45.0-75.0) Lymphocytes (%) (Auto) 19.7 % (20.0-45.0) L Monocytes (%) (Auto) 9.7 % (1.0-10.0) Eosinophils (%) (Auto) 1.4 % (0.0-3.0) Basophils (%) (Auto) 0.7 % (0.0-2.0) Sodium Level 138 MMOL/L (136-145) Potassium Level 3.8 MMOL/L (3.5-5.1) Chloride Level 104 MMOL/L (98-107) Carbon Dioxide Level 28 MMOL/L (21-32) Anion Gap 7 mmol/L (5-15) Blood Urea Nitrogen 10 mg/dL (7-18) Creatinine 0.7 MG/DL (0.55-1.30) Estimat Glomerular Filtration Rate > 60 mL/min (>60) Glucose Level 88 MG/DL (74-106) Calcium Level 8.8 MG/DL (8.5-10.1) Total Bilirubin 0.3 MG/DL (0.2-1.0) Aspartate Amino Transf (AST/SGOT) 14 U/L (15-37) L Alanine Aminotransferase (ALT/SGPT) 16 U/L (12-78) Alkaline Phosphatase 85 U/L (46-116) Total Protein 7.0 G/DL (6.4-8.2) Albumin 3.4 G/DL (3.4-5.0) Globulin 3.6 g/dL Albumin/Globulin Ratio 0.9 (1.0-2.7) L Current Medications Medications (Trade) Dose Ordered Sig/Olesya Route PRN Reason Start Time Stop Time Status Last Admin Dose Admin Ceftriaxone Sodium 2 gm/ Dextrose 55 ml @ 110 mls/hr Q24H IVPB 06/01/17 04:00 06/08/17 03:59 06/02/17 03:09 Heparin Sodium (Porcine) (Heparin 5000 units/ml) 5,000 units EVERY 12 HOURS SUBQ 05/31/17 09:00 06/30/17 08:59 06/02/17 08:45 Hydromorphone HCl (Dilaudid) 1 mg Q6H PRN IVP Severe Pain (Pain Scale 7-10) 05/31/17 15:45 06/07/17 03:59 06/02/17 07:46 Morphine Sulfate (Morphine Sulfate) 2 mg Q8H PRN IVP Moderate Pain (Pain Scale 4-6) 05/31/17 04:30 06/07/17 03:59 Ondansetron HCl (Zofran) 4 mg Q4H PRN IVP Nausea & Vomiting 05/31/17 04:15 06/30/17 04:14 Reanna Dawson M.D. Jun 02, 2017 11:28
[2017-06-02 12:00] VITALS: BP 100/50
--- NOTE | 2017-06-02 14:11 | Anethesia Preoperative Eval ---
Anesthesia Pre-op PMH/ROS General Date of Evaluation: Jun 02, 2017 Anesthesiologist: Kenny ASA Score: ASA 2 Mallampati Score Class I : Soft palate, uvula, fauces, pillars visible Class II: Soft palate, uvula, fauces visible Class III: Soft palate, base of uvula visible Class IV: Only hard plate visible Mallampati Classification: Class I Surgeon: Magi Diagnosis: Infected kidney stone Left Surgical Procedure: Left cystoscopy, ureteroscopy, j-j stent placement Anesthesia History: none Family History: no anesthesia problems Allergies: Coded Allergies: SULFA (SULFONAMIDE ANTIBIOTICS) (Unverified Allergy, Unknown, 12/24/14) Medications: see eMAR Past Medical History Cardiovascular: Denies: HTN, CAD, MS, valve dz, arrhythmia, other Pulmonary: Reports: asthma - controlled, Denies: COPD, BRIT[place], other Gastrointestinal/Genitourinary: Denies: GERD, CRI, ESRD, other Neurologic/Psychiatric: Denies: dementia, CVA, depression/anxiety, TIA, other Endocrine: Denies: DM, hypothyroidism, steroids, other HEENT: Denies: cataract (L), cataract (R), glaucoma, [place] (L), [place] (R), other Hematology/Immune: Denies: anemia, DVT, bleeding disorder, other Musculoskeletal/Integumentary: Denies: OA, RA, DJD, DDD, edema, other PSxH Narrative: d&c and c/s Anesthesia Pre-op Phys. Exam Physician Exam Last Vital Signs Date Time Temp Pulse Resp B/P (MAP) Pulse Ox O2 Delivery O2 Flow Rate FiO2 06/02/17 12:00 98.5 70 18 100/50 98 Room Air Constitutional: NAD Cardiovascular: RRR Respiratory: CTA Airway Exam Mallampati Score: Class I MO: full ROM: full Teeth: intact Anesthesia Pre-op A/P Labs Hematology Test 06/02/17 04:50 White Blood Count 8.9 K/UL (4.8-10.8) Red Blood Count 3.83 M/UL (4.20-5.40) L Hemoglobin 11.4 G/DL (12.0-16.0) L Hematocrit 34.2 % (37.0-47.0) L Mean Corpuscular Volume 89 FL (80-99) Mean Corpuscular Hemoglobin 29.6 PG (27.0-31.0) Mean Corpuscular Hemoglobin Concent 33.2 G/DL (32.0-36.0) Red Cell Distribution Width 12.1 % (11.6-14.8) Platelet Count 364 K/UL (150-450) Mean Platelet Volume 6.6 FL (6.5-10.1) Neutrophils (%) (Auto) 68.6 % (45.0-75.0) Lymphocytes (%) (Auto) 19.7 % (20.0-45.0) L Monocytes (%) (Auto) 9.7 % (1.0-10.0) Eosinophils (%) (Auto) 1.4 % (0.0-3.0) Basophils (%) (Auto) 0.7 % (0.0-2.0) Chemistry Test 06/02/17 04:50 Sodium Level 138 MMOL/L (136-145) Potassium Level 3.8 MMOL/L (3.5-5.1) Chloride Level 104 MMOL/L (98-107) Carbon Dioxide Level 28 MMOL/L (21-32) Anion Gap 7 mmol/L (5-15) Blood Urea Nitrogen 10 mg/dL (7-18) Creatinine 0.7 MG/DL (0.55-1.30) Estimat Glomerular Filtration Rate > 60 mL/min (>60) Glucose Level 88 MG/DL (74-106) Calcium Level 8.8 MG/DL (8.5-10.1) Total Bilirubin 0.3 MG/DL (0.2-1.0) Aspartate Amino Transf (AST/SGOT) 14 U/L (15-37) L Alanine Aminotransferase (ALT/SGPT) 16 U/L (12-78) Alkaline Phosphatase 85 U/L (46-116) Total Protein 7.0 G/DL (6.4-8.2) Albumin 3.4 G/DL (3.4-5.0) Globulin 3.6 g/dL Albumin/Globulin Ratio 0.9 (1.0-2.7) L Risk Assessment & Plan Assessment: ASA II Plan: GA Status Change Before Surgery: No Pre-Antibiotics Drug: SHANA HANKS M.D. Jun 02, 2017 14:11
[2017-06-02 16:00] VITALS: BP 129/60
[2017-06-02 20:00] VITALS: BP 112/76
[2017-06-02] MEDS: Hydromorphone 0.5mg/0.5ml inj IVP PRN (21:43)
[2017-06-03] VITALS (19 sets, daily range): BP systolic 106–155; BP diastolic 63–96
[2017-06-03] MEDS: cefTRIAXone 2 GM in D5W 55 ML IVPB SCH (03:36)
[2017-06-03] MEDS: Hydromorphone 0.5mg/0.5ml inj IVP PRN ×4 (03:36→17:07)
[2017-06-03] MEDS ORDERED: Iothalamate Meglumine 60% 30ML INJ ONE (06:52)
[2017-06-03] MEDS ORDERED: Sterile Water Irrig 1000ml IRRIG ONE (07:00)
[2017-06-03] MEDS ORDERED: LR 1000ml ONE (07:00)
[2017-06-03] MEDS ORDERED: Lidocaine 1% MPF 10mg/ml 5ml ONE (07:00)
[2017-06-03] MEDS ORDERED: Propofol 200mg/20ml IV ONE (07:00)
[2017-06-03] MEDS ORDERED: fentaNYL 100 mcg/2 mL IV ONE (07:00)
[2017-06-03] MEDS ORDERED: NS Irrig 4000ml IRRIG ONE ×2 (07:00)
[2017-06-03] MEDS ORDERED: Sodium Chloride 10ml vial INJ ONE (07:00)
--- NOTE | 2017-06-03 07:13 | Pre-Procedure Note/Attestation ---
Pre-Procedure Note/Attestation Complete Prior to Procedure Planned Procedure: left Procedure Narrative: Ureteroscopy, laser lithotripsy, JJ stent placement, cystoscopy and fluroscopy Indications for Procedure Pre-Operative Diagnosis: L ureteral stone/ hydro/ colic Attestation I attest that I discussed the nature of the procedure; its benefits; risks and complications; and alternatives (and the risks and benefits of such alternatives ), prior to the procedure, with the patient (or the patient's legal automotive sales representative). I attest that, if there was a reasonable possibility of needing a blood transfusion, the patient (or the patient's legal automotive sales representative) was given the [facility] standardized written summary, pursuant to the [place] Blood Safety Act ([place] Health and Safety Code # 1645, as amended). I attest that I re-evaluated the patient just prior to the surgery and that there has been no change in the patient's H&P, except as documented below: Elder Sow M.D. Jun 03, 2017 07:13
--- NOTE | 2017-06-03 07:59 | Anethesia Preoperative Eval ---
Anesthesia Pre-op PMH/ROS General Date of Evaluation: Jun 03, 2017 Time of Evaluation: 06:30 ASA Score: ASA 1 Mallampati Score Class I : Soft palate, uvula, fauces, pillars visible Class II: Soft palate, uvula, fauces visible Class III: Soft palate, base of uvula visible Class IV: Only hard plate visible Mallampati Classification: Class I Allergies: Coded Allergies: SULFA (SULFONAMIDE ANTIBIOTICS) (Unverified Allergy, Unknown, 12/24/14) Anesthesia Pre-op Phys. Exam Physician Exam Last Vital Signs Date Time Temp Pulse Resp B/P (MAP) Pulse Ox O2 Delivery O2 Flow Rate FiO2 06/03/17 04:06 98.2 06/03/17 04:00 69 18 114/69 97 06/02/17 16:00 Room Air Airway Exam Mallampati Score: Class I Elizabeth Bell MD Jun 03, 2017 07:59
--- NOTE | 2017-06-03 08:14 | Immediate Post-Op Evaluation ---
Immediate Post-Op Evalulation Immediate Post-Op Evalulation Procedure: cysytoscopy and litho Date of Evaluation: Jun 03, 2017 Time of Evaluation: 08:14 Nausea: No Vomiting: No Given Within 1 Hr of Incision: Yes Elizabeth Bell MD Jun 03, 2017 08:14
[2017-06-03] MEDS: fentaNYL 100 mcg/2 mL IV PRN ×5 (08:35→09:26)
[2017-06-03] MEDS: Heparin 5000 units/ml inj SUBQ SCH (09:00)
[2017-06-03] MEDS ORDERED: Hydromorphone 0.5mg/0.5ml inj IVP PRN (09:45)
--- NOTE | 2017-06-03 10:20 | Infectious Diseases Prog Note ---
Assessment/Plan Assessment/Plan Abx: Ceftriaxone 05/31- Assesment: Infected obstructive L kidney stone w/ moderate hydronephrosis -CT abd/p; There is an 11 x 9 x 5 mm calculus at the left ureteropelvic junction. There is resultant moderate hydronephrosis, minimal perinephric fat stranding. There is considerable dilatation of the renal pelvis. Questionable tiny one or more upper pole intrarenal calculi are noted.. The ureter distal to the calculus is nondilated, and no distal ureteral calculi are identified. The right kidney contains a 5 mm lower pole calculus. No right hydronephrosis, hydroureter, or ureteral calculus demonstrated. Lack of IV contrast limits assessment of the renal parenchyma. No gross renal parenchymal mass or cyst demonstrated. Normal appendix. No evidence of diverticulosis or diverticulitis. No small bowel distention. No free or loculated intraperitoneal air or fluid is evident. There is a tiny fat-containing umbilical hernia -u/a WBC TNCT, nit neg, leuk +2,ucx 30-40K P. mirabilis (S. Ceftriaxone, Cipro/ levo; R amp, bactrim) Leukocytosis -2ry to above- resolved -afebrile Recent Proteus UTI s/p Rx -ucx 05/16 >P. mirabilis (S Ancef, Ceftriaxone, Cipro/levo; R bactrim) Hx of asthma Plan -Continue Ceftriaxone #/-14 for infected kidney stone/complicated UTI; upon discharge can be transition to PO cipro or Cefdinir. -low threshold to switch to Ertapenem if febrile, worsening leukocytosis or HD unstable to cover for ESBL inducibility of Proteus sp -cleared from ID to proceed with cystoscopy and double J stent placement; plan for procedure today -Monitor CBC/BMP, temperatures Thank you for this consultation. Will continue to follow along with you. Discussed with RN and Dr Sow. Subjective Allergies: Coded Allergies: SULFA (SULFONAMIDE ANTIBIOTICS) (Unverified Allergy, Unknown, 12/24/14) Subjective afebrile no leukocytosis pain improving for cytoscopy, stent placement today Objective Vital Signs Last 24 Hour Vital Signs Date Time Temp Pulse Resp B/P (MAP) Pulse Ox O2 Delivery O2 Flow Rate FiO2 06/03/17 10:05 98.0 81 16 133/87 100 Room Air 06/03/17 09:57 98.0 06/03/17 09:45 84 17 125/71 100 Room Air 06/03/17 09:35 98.0 06/03/17 09:30 77 18 130/69 100 Room Air 06/03/17 09:20 82 16 155/73 100 Room Air 06/03/17 09:10 97 20 138/84 100 Room Air 06/03/17 09:00 89 19 137/81 98 Room Air 06/03/17 08:50 91 16 132/80 100 Room Air 06/03/17 08:40 77 18 141/96 98 Room Air 06/03/17 08:30 84 20 144/92 100 Simple Mask 6.0 06/03/17 08:20 78 17 119/90 100 Simple Mask 6.0 06/03/17 08:15 72 15 117/76 100 Simple Mask 6.0 06/03/17 08:13 97.0 76 13 106/68 100 Simple Mask 6.0 06/03/17 04:06 98.2 06/03/17 04:00 97.5 69 18 114/69 97 06/03/17 00:00 98.2 69 17 112/63 97 06/02/17 20:00 98.2 90 17 112/76 98 06/02/17 16:00 98.6 69 19 129/60 98 Room Air 06/02/17 12:00 98.5 70 18 100/50 98 Room Air Height (Feet): 5 Height (Inches): 3.00 Weight (Pounds): 185 Objective General Appearance: well appearing, no apparent distress, alert HEENT: normocephalic, atraumatic,bilateral eye PERRL, bilateral eye EOMI, normal pharynx Neck: full range of motion, supple, no meningismus Respiratory: chest non-tender, lungs clear, normal breath sounds Cardiovascular : regular rate, rhythm, no murmur Gastrointestinal: normal bowel sounds, non tender, no mass, no organomegaly, no bruit, non-distended Musculoskeletal: back normal, gait/station normal, normal range of motion, tender - Diffuse tenderness to lower lumbar area; imporving. No percussive tenderness. No anesthesia. Neurologic: alert, oriented x3 Skin: warm/dry Current Medications Medications (Trade) Dose Ordered Sig/Olesya Route PRN Reason Start Time Stop Time Status Last Admin Dose Admin Ceftriaxone Sodium 2 gm/ Dextrose 55 ml @ 110 mls/hr Q24H IVPB 06/01/17 04:00 06/08/17 03:59 06/03/17 03:36 Fentanyl Citrate (Sublimaze 100 mcg/2 mL) 25 mcg Q10M PRN IV Moderate Pain (Pain Scale 4-6) 06/03/17 08:00 06/04/17 07:58 06/03/17 09:26 Heparin Sodium (Porcine) (Heparin 5000 units/ml) 5,000 units EVERY 12 HOURS SUBQ 05/31/17 09:00 06/30/17 08:59 06/02/17 21:05 Hydromorphone HCl (Dilaudid) 0.5 mg NEEDED PRN IVP For Pain 06/03/17 09:45 06/03/17 14:00 06/03/17 09:38 Hydromorphone HCl (Dilaudid) 1 mg Q6H PRN IVP Severe Pain (Pain Scale 7-10) 06/02/17 21:15 06/09/17 21:14 06/03/17 03:36 Morphine Sulfate (Morphine Sulfate) 2 mg Q8H PRN IVP Moderate Pain (Pain Scale 4-6) 05/31/17 04:30 06/07/17 03:59 Ondansetron HCl (Zofran) 4 mg Q1H PRN IVP Nausea & Vomiting 06/03/17 08:00 06/04/17 07:59 Ondansetron HCl (Zofran) 4 mg Q4H PRN IVP Nausea & Vomiting 05/31/17 04:15 06/30/17 04:14 Reanna Dawson M.D. Jun 03, 2017 10:20
--- NOTE | 2017-06-03 11:08 | General Progress Note ---
Assessment/Plan Status: stable Assessment/Plan 1. Systemic inflammatory response syndrome. 2. Pyelonephritis, acute. 3. Anemia. 4. Gastrointestinal and deep vein thrombosis prophylaxis. 5. Obstructive left-sided UPJ obstruction. following notes are reviewed ID Uro status post Lithotripsy and Uretheral scope ok to followup with po abx Subjective ROS Limited/Unobtainable: No Constitutional: Reports: weakness Cardiovascular: Reports: no symptoms Gastrointestinal/Abdominal: Reports: no symptoms Allergies: Coded Allergies: SULFA (SULFONAMIDE ANTIBIOTICS) (Unverified Allergy, Unknown, 12/24/14) Objective Last 24 Hour Vital Signs Date Time Temp Pulse Resp B/P (MAP) Pulse Ox O2 Delivery O2 Flow Rate FiO2 06/03/17 10:21 80 18 128/84 100 Room Air 06/03/17 10:05 98.0 81 16 133/87 100 Room Air 06/03/17 09:57 98.0 06/03/17 09:45 84 17 125/71 100 Room Air 06/03/17 09:35 98.0 06/03/17 09:30 77 18 130/69 100 Room Air 06/03/17 09:20 82 16 155/73 100 Room Air 06/03/17 09:10 97 20 138/84 100 Room Air 06/03/17 09:00 89 19 137/81 98 Room Air 06/03/17 08:50 91 16 132/80 100 Room Air 06/03/17 08:40 77 18 141/96 98 Room Air 06/03/17 08:30 84 20 144/92 100 Simple Mask 6.0 06/03/17 08:20 78 17 119/90 100 Simple Mask 6.0 06/03/17 08:15 72 15 117/76 100 Simple Mask 6.0 06/03/17 08:13 97.0 76 13 106/68 100 Simple Mask 6.0 06/03/17 04:06 98.2 06/03/17 04:00 97.5 69 18 114/69 97 06/03/17 00:00 98.2 69 17 112/63 97 06/02/17 20:00 98.2 90 17 112/76 98 06/02/17 16:00 98.6 69 19 129/60 98 Room Air 06/02/17 12:00 98.5 70 18 100/50 98 Room Air Intake and Output 06/03/17 06/04/17 19:00 07:00 Intake Total 550 ml Output Total 220 ml Balance 330 ml IV Total 550 ml Output Urine Total 200 ml Estimated Blood Loss 20 ml # Voids 5 Height (Feet): 5 Height (Inches): 3.00 Weight (Pounds): 185 General Appearance: no apparent distress EENT: PERRL/EOMI Neck: supple Cardiovascular: normal rate Respiratory/Chest: lungs clear Abdomen: soft Extremities: non-tender Neurologic: art psychotherapist II-XII grossly normal Kim Suárez MD Jun 03, 2017 11:08
--- NOTE | 2017-06-03 11:18 | Diagnostic Imaging Report ---
Indication: Left flank pain Technique: Digital intraoperative images Comparison: Reference made to CT scan 05/30/2017 Findings: Intraoperative images demonstrate wire and ureteral catheter access into what is presumably the area of the left renal collecting system. The calculus demonstrated on recent CT scan is not visible on these images. Impression: Intraoperative imaging, as described
--- NOTE | 2017-06-03 15:45 | Operative Note - Dictated ---
DATE OF OPERATION: 06/03/2017 PREOPERATIVE DIAGNOSIS: Left ureteral stone with hydronephrosis and colic secondary to same. POSTOPERATIVE DIAGNOSIS: Left ureteral stone with hydronephrosis and colic secondary to same. PROCEDURE PERFORMED: Left ureterostomy, laser lithotripsy, and fluoroscopy. SURGEON: Elder Sow M.D. ANESTHESIA: General/LMA, Dr. Mc Bell, attending. RIVAS: Lenin Cid M.D. ESTIMATED BLOOD LOSS: None. IV FLUIDS: IV crystalloid only. DRAINS: Tubes and catheters none. SPECIMENS: None. COMPLICATIONS: None. OPERATIVE INDICATION: The patient is a 21-year-old female with a history of a 11 mm left UPJ stone with hydronephrosis and colic secondary to same. She was counseled and elected to undergo the procedure as described above. She was scheduled for this procedure at [facility] on 06/03/2017. OPERATIVE NOTE IN DETAIL: The patient was brought to the operative room, placed on table in the supine position. General anesthesia was induced. Once the patient had LMA placed, she was repositioned in dorsal lithotomy, draped and prepped in usual sterile fashion. Using a rigid ureteroscope, the patient's urethral meatus was calibrated and the scope was passed into the bladder. The urethra and bladder were within normal limits. The left ureteral orifice was identified. A 0.035 Glidewire was passed into the left renal collecting system with a good curl noted fluoroscopically within the kidney. It was used to guide the rigid ureteroscope over the wire and into the ureter. The stone was not in the UPJ and was visible in the kidney where it had been knocked back by the wire. The rigid ureteroscope was then removed. A flexible scope was passed over the wire and into the kidney and up to the stone. Using a 365 holmium laser fiber at a setting of 0.8 to 1.2 joules and 8 hertz, I proceeded to fragment the stone in its entirety. Once this is done, ureteroscope was slowly removed and descending ureterostomy did not reveal any further evidence of obstruction, stone, or any other abnormality. As the ureterostomy had been fairly atraumatic, a decision was made not to leave a stent. The patient was then taken out of dorsal lithotomy and placed back in supine position. She was clean, dried, and dressed. She was awakened and extubated in the operative room without difficulty and transported to recovery in stable condition. I was present and scrubbed for the entire duration of this case. All needle, sponge, and instrument counts reported correct. Elder Sow M.D. DR: NOEMÍ JOB#: [id number] CC:
[2017-06-04 10:18] VITALS: BP 158/87
--- NOTE | 2017-06-04 10:18 | 48 Hour Post Anesthesia Eval ---
Post Anesthesia Evaluation Procedure: cysytoscopy and litho Date of Evaluation: Jun 04, 2017 Time of Evaluation: 10:00 Blood Pressure Systolic: 158 0: 87 Pulse Rate: 87 Respiratory Rate: 16 Temperature (Fahrenheit): 98 O2 Sat by Pulse Oximetry: 99 Airway: patent Nausea: No Vomiting: No Hydration Status: adequate Mental Status/LOC: patient returned to baseline Post-Anesthesia Complications: none Follow-up care needed: patient intructions given Xu Mathew M.D. Jun 04, 2017 10:18
--- NOTE | 2017-06-04 13:47 | Discharge Summary ---
Discharge Summary Hospital Course Date of Admission May 31, 2017 at 01:37 Date of Discharge Jun 03, 2017 at 18:00 Admitting Diagnosis INFECTED KIDNEY STONE LINA Olmedo is a 21 year old female who was admitted on May 31, 2017 at 01:37 for Infected Kidney Stone Hospital Course [id number] Discharge Discharge Disposition Patient was discharged to Home (01) Discharge Diagnoses: Bessy Mccormick NP Jun 04, 2017 13:47
--- NOTE | 2017-06-04 21:31 | Discharge Summary 2 SIG ---
DATE OF ADMISSION: 05/31/2017 DATE OF DISCHARGE: 06/03/2017 CONSULTANTS: 1. Elder Sow M.D. 2. Reanna Dawson M.D. BRIEF HOSPITAL COURSE: The patient is a 21-year-old female, who had abdominal pain with radiation to the flanks. Denies any fever or chills. Denies vaginal discharge, however, was having low-grade fever. She presented to ED complaining of low back pain radiating to the groin. She was at ED couple of weeks ago for urinary tract infection that has resolved. On evaluation at ED, abdominal and pelvic CAT scan showed a 11 x 9 x 5 mm calculus at the left ureteropelvic junction resulting in moderate hydronephrosis. She had elevated WBC and creatinine of 1. Urine was positive for bacteria and positive for WBC with 2+ protein. She was admitted to medical floor for acute pyelonephritis, partially obstructive left-sided ureteropelvic obstruction, and systemic inflammatory response syndrome. She was started on IV ceftriaxone. Dosage was increased to 2 g daily by Infectious Disease specialist. She was seen by urologist, Dr. Sow and on 06/03/2017, the patient underwent left ureterostomy, laser lithotripsy, and fluoroscopy. Antibiotics were transitioned to p.o. Urine culture showed growth of Proteus. She was then discharged home to continue p.o. antibiotic. FINAL DIAGNOSES: 1. Fevers. 2. Acute pyelonephritis. 3. Anemia. 4. Obstructive uropathy at left-sided ureteropelvic junction. 5. Left hydronephrosis secondary to left ureteral stone. 6. Status post left ureterostomy, laser lithotripsy, and fluoroscopy. 7. Urinary tract infection with Proteus. DISCHARGE DISPOSITION: The patient was discharged home. DISCHARGE MEDICATIONS: Refer to medication list. FOLLOWUP: Follow up with PMD in a week. Kim Suárez M.D. I have been assigned to dictate discharge summary on this account and I was not involved in the patient's management. Bessy Mccormick N.P. DR: SONU JOB#: [id number] CC: TEDDY
== END 2017-06-03 18:00 | disposition home or self-care (01) | DRG 443 ==
LOC: EMR 22:25 → 3E 05-31 01:37 → EDBEDREQ 05-31 02:53
PROC: 0TC14ZZ Extirpation of Matter from Left Kidney, Percutaneous Endoscopic Approach (ICD-10-PCS; principal; 2017-06-02)
DX: N13.6 Pyonephrosis (principal); R65.10 Systemic inflammatory response syndrome (SIRS) of non-infectious origin without acute organ dysfunction; N10 Acute pyelonephritis; D64.9 Anemia, unspecified; B96.4 Proteus (mirabilis) (morganii) as the cause of diseases classified elsewhere; J45.909 Unspecified asthma, uncomplicated; Z88.2 Allergy status to sulfonamides
CPT/HCPCS: 36415; 74176; 74420; 76000; 80048; 80053; 81003; 81025; 85025; 87086; 87181; 94003; 94150; 99285; J2405

== ENCOUNTER 2017-11-16 11:39 | Emergency (ER) | payer MEDICAID ==
[~2017-11-16] VITALS: Ht 154.9 cm; Wt 90.7 kg
[~2017-11-16 11:39] MED LIST changes: +NKM
--- NOTE | 2017-11-16 12:06 | Emergency Room Report ---
History of Present Illness General Chief Complaint: Lower Back Pain or Injury Present Illness HPI 21-year-old female patient presents ER complaining of right flank pain 1 day. Patient reports history of kidney stones, states that this pain feels similar to that. Patient reports last episode of kidney stones was last year, states was seen at [facility] and had surgery to remove the stones. Patient reports that she had another stone, does not know what side symptoms. Patient reports that she took ibuprofen 1200 mg earlier today for relief of pain symptoms, states pain has somewhat resolved, reports still in pain. Patient denies vomiting, complains of nausea. Patient denies dysuria, hematuria, vaginal bleeding. Patient denies fever, chest pain, shortness breath. Allergies: Coded Allergies: SULFA (SULFONAMIDE ANTIBIOTICS) (Unverified Allergy, Unknown, 12/24/14) Patient History Past Medical History: see triage record Last Menstrual Period: 11/06/17 Reviewed Nursing Documentation: PMH: Agreed; PSxH: Agreed Nursing Documentation-PMH Hx Cardiac Problems: No Hx Asthma: Yes Hx Cancer: No Hx Gastrointestinal Problems: No - kidney stone Hx Neurological Problems: No Review of Systems All Other Systems: negative except mentioned in HPI Physical Exam Vital Signs Date Time Temp Pulse Resp B/P (MAP) Pulse Ox O2 Delivery O2 Flow Rate FiO2 11/16/17 11:47 98.3 77 18 108/62 98 Room Air 98.2 Sp02 EP Interpretation: reviewed, normal General Appearance: well appearing, no apparent distress, alert, GCS 15, non- toxic Head: normocephalic, atraumatic Eyes: bilateral eye normal inspection, bilateral eye PERRL ENT: hearing grossly normal, normal pharynx, no angioedema, normal voice, uvula midline, moist mucus membranes Neck: full range of motion Respiratory: lungs clear, normal breath sounds, no rhonchi, no respiratory distress, no accessory muscle use, no wheezing, speaking full sentences Cardiovascular #1: regular rate, rhythm, no edema Gastrointestinal: non tender, soft, no mass, non-distended, no guarding, no rebound, other - Negative Rovsing, negative obturator, negative heel tap Genitourinary: no CVA tenderness Musculoskeletal: back normal, digits/nails normal, gait/station normal, normal range of motion, non-tender Neurologic: alert, oriented x3, responsive, motor strength/tone normal, sensory intact Psychiatric: mood/affect normal Skin: no rash Lymphatic: no adenopathy Medical Decision Making PA Attestation Dr. Haney is my supervising Physician whom patient management has been discussed with. Diagnostic Impression: Primary Impression: Kidney stones ER Course Pt. presents to the ED c/o right flank pain. Ddx considered but are not limited to UTI, for cystitis, nephrolithiasis, hydronephrosis. Begin abdominal pain workup. Provided patient with pain medication. Vital signs: are WNL, pt. is afebrile ORDERS: CBC, CMP, Lipase, UA, Urine , CT abdomen pelvis, Zofran, and pain medication. ER COURSE: CBC and CMP unremarkable, no elevation in WBC, no elevation in LFTs. UA negative for nitrites, occasional epithelial cells, patient denies dysuria and hematuria, low suspicion for UTI, does not require abx tx at this time. Microscopic hematuria likely related to kidney stones. Urine negative. results discussed with the patient. Follow-up with primary care provider and discuss referral to urology due to frequency of kidney stones. CT shows 5 mm kidney stone on right side. reviewed previous CT. Patient okay for outpatient treatment. Informed patient likely to pass stone on her own. Drink plenty of fluids. ER precautions given, return to ER for new or worsening of symptoms including but not limited to worsening of pain, intractable vomiting, chest pain, shortness of breath, hematuria. Patient reports relief of pain symptoms with medication in ER. Patient resting comfortably in bed, texting on phone, ready for discharge to home. DISCHARGE: Rx provided for [place], CURES report reviewed. Take Tylenol following completion of [place] medication. Rx provided for Flomax. At this time pt. is stable for d/c to home. Patient resting comfortably, in no acute distress, nontoxic appearing, talking without difficulty. Rx provided to patient. Patient to take medications as instructed Will provide with patient care instructions and any necessary prescriptions. Care plan and follow-up instructions provided. Patient instructed to follow-up with primary care provider in 3 - 5 days. Patient questions asked and answered. Patient reports understanding and agreement to treatment plan. ER precautions given. Patient instructed to return to ER immediately for any new or worsening of symptoms including but not limited to increasing SOB, persistent fever, worsening of pain symptoms, intractable vomiting, blood in stool, urine, and/or emesis. - Please note that this Emergency Department Report was dictated using Pathbriteeffervescent salts compounder technology software, occasionally this can lead to erroneous entry secondary to interpretation by the dictation equipment. Labs Test 11/16/17 12:00 11/16/17 14:10 White Blood Count 10.7 K/UL (4.8-10.8) Red Blood Count 4.33 M/UL (4.20-5.40) Hemoglobin 12.2 G/DL (12.0-16.0) Hematocrit 37.7 % (37.0-47.0) Mean Corpuscular Volume 87 FL (80-99) Mean Corpuscular Hemoglobin 28.2 PG (27.0-31.0) Mean Corpuscular Hemoglobin Concent 32.3 G/DL (32.0-36.0) Red Cell Distribution Width 12.4 % (11.6-14.8) Platelet Count 397 K/UL (150-450) Mean Platelet Volume 6.4 FL (6.5-10.1) Neutrophils (%) (Auto) 83.9 % (45.0-75.0) Lymphocytes (%) (Auto) 10.9 % (20.0-45.0) Monocytes (%) (Auto) 4.1 % (1.0-10.0) Eosinophils (%) (Auto) 0.4 % (0.0-3.0) Basophils (%) (Auto) 0.7 % (0.0-2.0) Sodium Level 141 MMOL/L (136-145) Potassium Level 3.8 MMOL/L (3.5-5.1) Chloride Level 105 MMOL/L (98-107) Carbon Dioxide Level 26 MMOL/L (21-32) Anion Gap 10 mmol/L (5-15) Blood Urea Nitrogen 20 mg/dL (7-18) Creatinine 0.8 MG/DL (0.55-1.30) Estimat Glomerular Filtration Rate > 60 mL/min (>60) Glucose Level 110 MG/DL (74-106) Calcium Level 9.1 MG/DL (8.5-10.1) Total Bilirubin 0.4 MG/DL (0.2-1.0) Aspartate Amino Transf (AST/SGOT) 16 U/L (15-37) Alanine Aminotransferase (ALT/SGPT) 26 U/L (12-78) Alkaline Phosphatase 109 U/L (46-116) Total Protein 8.2 G/DL (6.4-8.2) Albumin 4.2 G/DL (3.4-5.0) Globulin 4.0 g/dL Albumin/Globulin Ratio 1.0 (1.0-2.7) Lipase 94 U/L (73-393) Human Chorionic Gonadotropin, Quant < 1 mIU/mL (1-6) Urine Color Pale yellow Urine Appearance Clear Urine pH 6 (4.5-8.0) Urine Specific [place] 1.015 (1.005-1.035) Urine Protein Negative (NEGATIVE) Urine Glucose (UA) Negative (NEGATIVE) Urine Ketones Negative (NEGATIVE) Urine Occult Blood 3+ (NEGATIVE) Urine Nitrite Negative (NEGATIVE) Urine Bilirubin Negative (NEGATIVE) Urine Urobilinogen Normal MG/DL (0.0-1.0) Urine Leukocyte Esterase 1+ (NEGATIVE) Urine RBC 5-10 /HPF (0 - 2) Urine WBC 2-4 /HPF (0 - 2) Urine Squamous Epithelial Cells Occasional /LPF Urine Bacteria Occasional /HPF (NONE) Urine HCG, Qualitative Negative (NEGATIVE) CT/MRI/US Diagnostic Results CT/MRI/US Diagnostic Results : Imaging Test Ordered: CT abdomen Impression Positive for 5 mm distal right ureteral calculus at the level of the ureteral orifice. Presumably, this represents migration of the right lower pole calculus demonstrated on prior CT scan of 05/30/2017 Residual punctate right renal calyceal calculus. Small left renal calyceal calculus also currently evident, not seen previously No other acute or significant abnormality demonstrated Previously demonstrated left ureteropelvic junction stone is no longer evident Last Vital Signs Date Time Temp Pulse Resp B/P (MAP) Pulse Ox O2 Delivery O2 Flow Rate FiO2 11/16/17 11:47 98.3 77 18 108/62 98 Room Air 98.2 Disposition: HOME, SELF-CARE Condition: Stable Scripts Hydrocodone Bit/Acetaminophen 5-325* (NORCO 5-325*) 1 Each Tablet 1 TAB ORAL Q6H PRN for For Pain, #10 TAB 0 Refills Prov: Tio Trinh P.A. 11/16/17 Tamsulosin HCl (Flomax) 0.4 Mg Cap.er.24h 0.4 MG ORAL DAILY, #10 CAP Prov: Tio Trinh P.A. 11/16/17 Patient Instructions: Kidney Stones, [id number] Additional Instructions: Followup with primary care provider in 2-3 days and request referral to urology. Take medications as directed. Patient questions asked and answered. ER precautions given, patient instructed to return to ER immediately for any new or worsening of symptoms including but not limited to intractable vomiting, chest pain, SOB, abdominal pain, dysuria, hematuria. Tio Trinh November 16, 2017 12:06
[2017-11-16] MEDS ORDERED: Ketorolac 30mg Inj IV ONE (12:15)
[2017-11-16] MEDS ORDERED: Morphine Sulfate 4mg/ml Inj IVP ONE (12:15)
[2017-11-16 13:11] LABS: BASOPHILS % (AUTO) 0.7 % (0.0-2.0); EOSINOPHILS % (AUTO) 0.4 % (0.0-3.0); HEMATOCRIT 37.7 % (37.0-47.0); HEMOGLOBIN 12.2 G/DL (12.0-16.0); LYMPHOCYTES % (AUTO) 10.9 % (20.0-45.0); MEAN CORPUSCULAR VOLUME 87 FL (80-99); MONOCYTES % (AUTO) 4.1 % (1.0-10.0); NEUTROPHILS % (AUTO) 83.9 % (45.0-75.0); PLATELET COUNT 397 K/UL (150-450); RED BLOOD COUNT 4.33 M/UL (4.20-5.40); RED CELL DISTRIBUTION WIDTH 12.4 % (11.6-14.8); WHITE BLOOD COUNT 10.7 K/UL (4.8-10.8)
[2017-11-16 13:14] LABS: ANION GAP 10 mmol/L (5-15); BLOOD UREA NITROGEN 20 mg/dL (7-18); CALCIUM 9.1 MG/DL (8.5-10.1); CARBON DIOXIDE 26 MMOL/L (21-32); CHLORIDE 105 MMOL/L (98-107); CREATININE 0.8 MG/DL (0.55-1.30); POTASSIUM 3.8 MMOL/L (3.5-5.1); SODIUM 141 MMOL/L (136-145)
[2017-11-16 13:19] LABS: ALANINE AMINOTRANSFERASE 26 U/L (12-78); ALBUMIN 4.2 G/DL (3.4-5.0); ALKALINE PHOSPHATASE 109 U/L (46-116); ASPARTATE AMINO TRANSFERASE 16 U/L (15-37); BILIRUBIN,TOTAL 0.4 MG/DL (0.2-1.0)
[2017-11-16 14:00] VITALS: BP 107/55
[2017-11-16 14:26] LABS: APPEARANCE,URINE CLEAR; BILIRUBIN, URINE NEGATIVE (NEGATIVE); COLOR,URINE PALE YELLOW; GLUCOSE, URINE (UA) NEGATIVE (NEGATIVE); KETONES,URINE NEGATIVE (NEGATIVE); LEUKOCYTE ESTERASE ,URINE 1+ (NEGATIVE); NITRITE,URINE NEGATIVE (NEGATIVE); PH,URINE 6 (4.5-8.0); PROTEIN,URINE NEGATIVE (NEGATIVE); UROBILINOGEN,URINE NORMAL MG/DL (0.0-1.0)
--- NOTE | 2017-11-16 14:42 | Diagnostic Imaging Report ---
Indication: Right flank pain Technique: Spiral acquisitions obtained through the abdomen and pelvis. No oral or IV contrast, per urinary stone protocol. Multiplanar reconstructions were generated. Total dose length product 996.59 mGycm. CTDIvol(s) 17.73 mGy. Dose reduction achieved using automated exposure control Comparison: 05/30/2017 Findings: A 5 mm calculus projects just inside the bladder lumen at the level of the right ureteral orifice. Note that the previously demonstrated right lower pole stone of similar size is no longer evident. There is a tiny residual right lower pole intrarenal calyceal calculus, however. A tiny calculus is seen in a left lower pole calyx, most evident on the coronal reconstructed images. This is not evident on the previous exam. Previously demonstrated left ureteropelvic junction calculus is no longer evident. No left hydronephrosis or hydroureter. The bladder is distended. Lack of IV contrast limits assessment of the renal parenchyma. No gross renal parenchymal mass or cyst demonstrated. Lack of IV contrast limits assessment of the other solid organs. The liver, gallbladder, bile ducts, pancreas, spleen, are all unremarkable. No pelvic mass or adenopathy. No retroperitoneal or mesenteric mass or adenopathy. The appendix is normal. No evidence of diverticulosis or diverticulitis. No free or loculated intraperitoneal air or fluid. Distal esophagus, stomach, duodenum are unremarkable. The included lung bases are clear. The bones are unremarkable Impression: Positive for 5 mm distal right ureteral calculus at the level of the ureteral orifice. Presumably, this represents migration of the right lower pole calculus demonstrated on prior CT scan of 05/30/2017 Residual punctate right renal calyceal calculus. Small left renal calyceal calculus also currently evident, not seen previously No other acute or significant abnormality demonstrated Previously demonstrated left ureteropelvic junction stone is no longer evident The CT scanner at [facility] is accredited by the [employer] and the scans are performed using protocols designed to limit radiation exposure to as low as reasonably achievable to attain images of sufficient resolution adequate for diagnostic evaluation.
[2017-11-16] MEDS ORDERED: FLOMAX0.4 MG ORAL (15:28)
[2017-11-16] MEDS ORDERED: NORCO 5-325 TA1 EACH ORAL (15:28)
[2017-11-16 15:56] VITALS: BP 99/60
== END 2017-11-16 15:57 | disposition home or self-care (01) ==
LOC: EMR 12:07
DX: N20.0 Calculus of kidney (principal); Z87.442 Personal history of urinary calculi; Z88.2 Allergy status to sulfonamides; J45.909 Unspecified asthma, uncomplicated
CPT/HCPCS: 36415; 74176; 80053; 81003; 81025; 83690; 84702; 85025; 96374; 96375; 99284; J1885; J2270; J2405

== ENCOUNTER 2018-11-02 23:47 | Emergency (ER) | payer MEDICAID ==
[~2018-11-02] VITALS: Ht 160 cm; Wt 89.8 kg
[~2018-11-02 23:47] MED LIST changes: +FLOMAX0.4 MG ORAL
[2018-11-02] MEDS ORDERED: FOLIC ACID1 MG ORAL (23:57)
[2018-11-02] MEDS ORDERED: FERROUS SULFAT325 MG ORAL (23:57)
--- NOTE | 2018-11-03 00:07 | NUR ---
ED Nurse Note: Pt arrived ED from home, c/o left side of facial, neck pain 10/10, which possible due to left side of toothache for few days. Pt is A/O X 4. Pt states that she is 18 weeks pregnent at this time. Vital signs stable, waiting for orders.
[2018-11-03 00:12] VITALS: BP 132/75
[2018-11-03] MEDS ORDERED: AUGMENTIN 875-1 EAC1 ORAL (00:14)
[2018-11-03] MEDS ORDERED: HYDROCODON-ACE1 EA15 ORAL (00:14)
[2018-11-03] MEDS ORDERED: IBUPROFEN600 MG ORAL (00:14)
--- NOTE | 2018-11-03 00:14 | Emergency Room Report ---
History of Present Illness General Chief Complaint: Toothache Source: Patient Present Illness HPI This is a 22-year-old female with no significant past medical issue. She presents with dental pain. Localized to the left lower second molar. She said his been ongoing for about a month. Comes and go. Worse with certain food. She then took 2 dentist on her [employer] insurance and they referred to somebody else because the would not pull the tooth or do a root canal. Pain is 8 out of 10. No fever chills but no swelling. Been taking [id number] medication. Allergies: Coded Allergies: SULFA (SULFONAMIDE ANTIBIOTICS) (Unverified Allergy, Unknown, 12/24/14) Patient History Past Medical History: see triage record, old chart reviewed Past Surgical History: none Pertinent Family History: none Social History: Denies: smoking Last Menstrual Period: 07/13/18 Now: Yes - 18 weeks : 3 Para: 1 Immunizations: other Reviewed Nursing Documentation: PMH: Agreed; PSxH: Agreed Nursing Documentation-PMH Past Medical History: No History, Except For Hx Cardiac Problems: No Hx Asthma: Yes Hx Cancer: No Hx Gastrointestinal Problems: No - kidney stone Hx Neurological Problems: No Review of Systems Eye: Denies: eye pain, blurred vision ENT: Denies: ear pain, nose congestion, throat swelling Respiratory: Denies: cough, shortness of breath Cardiovascular: Denies: chest pain, palpitations Gastrointestinal: Denies: abdominal pain, diarrhea, nausea, vomiting Musculoskeletal: Denies: back pain, joint pain Skin: Denies: rash Neurological: Denies: headache, numbness Endocrine: Denies: increased thirst, increased urine Hematologic/Lymphatic: Denies: easy bruising All Other Systems: negative except mentioned in HPI Physical Exam Vital Signs Date Time Temp Pulse Resp B/P (MAP) Pulse Ox O2 Delivery O2 Flow Rate FiO2 11/02/18 23:50 98.2 98 18 136/76 98 Room Air vitals normal Sp02 EP Interpretation: reviewed, normal General Appearance: well appearing, no apparent distress, alert Head: normocephalic, atraumatic Eyes: bilateral eye PERRL, bilateral eye EOMI ENT: hearing grossly normal, normal pharynx, other - Percussive tenderness over the left lower second molar. no abscess Neck: full range of motion, supple, no meningismus Respiratory: chest non-tender, lungs clear, normal breath sounds Cardiovascular #1: regular rate, rhythm, no murmur Gastrointestinal: normal bowel sounds, non tender, no mass, no organomegaly, no bruit, non-distended Musculoskeletal: back normal, gait/station normal, normal range of motion Psychiatric: mood/affect normal Skin: warm/dry Procedures Additional Procedure Procedure Narrative Procedure: Dental block Indication: Dental pain Description: I injected 2 mL of 1% lidocaine without epinephrine at the inferior alveolar ridge. Patient had good pain relief. No complication. Patient tolerated procedure without a problem. Medical Decision Making Diagnostic Impression: Primary Impression: Toothache ER Course patient with a dental pain, most likely infection. no abscess to be I and D. Will Discharge home. Last Vital Signs Date Time Temp Pulse Resp B/P (MAP) Pulse Ox O2 Delivery O2 Flow Rate FiO2 11/02/18 23:50 98.2 98 18 136/76 98 Room Air Status: improved Disposition: HOME, SELF-CARE Condition: Stable Scripts Ibuprofen* (MOTRIN*) 600 Mg Tablet 600 MG ORAL THREE TIMES A DAY, #30 TAB 0 Refills Prov: Shahram Malagon MD 11/03/18 Hydrocodone/Acetaminophen 5-325* (HYDROCODONE/ACETAMINOPHEN 5-325*) 1 Each Tablet 1 TAB ORAL Q6H PRN for For Pain, #15 TAB 0 Refills Prov: Shahram Malagon MD 11/03/18 Amoxicillin/Potassium Clav 875-125* (AUGMENTIN 875-125 TABLET*) 1 Each Tablet 1 TAB ORAL TWICE A DAY, #14 TAB Prov: Shahram Malagon MD 11/03/18 Patient Instructions: Dental Pain Additional Instructions: Follow-up with dentist JOSE ANGEL. Return if worse. Shahram Malagon MD November 03, 2018 00:14
[2018-11-03 00:21] VITALS: BP 132/75
--- NOTE | 2018-11-03 00:21 | NUR ---
ER DISCHARGE NOTE: Patient is cleared to be discharged per Dr. Malagon. Pt is aox4 on room air with stable vital signs. Pt was given D/C and prescription instructions and was able to verbalize understanding. Pt's ID band removed. Pt is able to ambulate with steady gait and took all belongings. Accompanied by her .
== END 2018-11-03 00:21 | disposition home or self-care (01) ==
LOC: EMR 23:59
DX: K08.89 Other specified disorders of teeth and supporting structures (principal); J45.909 Unspecified asthma, uncomplicated; Z88.2 Allergy status to sulfonamides
CPT/HCPCS: 99282; Z7502

== ENCOUNTER 2019-02-26 14:57 | Emergency (ER) | payer MEDICAID ==
[~2019-02-26] VITALS: Ht 160 cm; Wt 93.4 kg
[~2019-02-26 14:57] MED LIST changes: +AUGMENTIN 875-1 EAC1 ORAL; +FERROUS SULFAT325 MG ORAL; +FOLIC ACID1 MG ORAL; +HYDROCODON-ACE1 EA15 ORAL
[2019-02-26 15:17] VITALS: BP 103/64
--- NOTE | 2019-02-26 15:25 | NUR ---
ED Nurse Note: Patient walked into Ed c/o generalized body rash for 5 days. patient denies any pain. patient reports she is 33 weeks . patient is alert awake x4 ambulatory, breathing unlabored and even. daughter at bedside.
--- NOTE | 2019-02-26 15:38 | Emergency Room Report ---
History of Present Illness General Chief Complaint: Skin Rash/Abscess Source: Patient, Medical Record Present Illness HPI 23-year-old female who is 33 weeks here complaining of generalized body rash that started 3 days ago. Patient complaining of extreme pruritus however denies pain. Denies fever and chills, anaphylaxis, shortness of breath , chest pain, abdominal pain, nausea vomiting, vaginal discharge or bleeding. Patient reports that she is with a baby boy. Does not recall being exposed to any new allergens or being bit by an insect. Wears a urticarial rash is observed all over her body as well as on her stridor. No anaphylaxis noted. Patient has taken Benadryl with symptom relief. Allergies: Coded Allergies: SULFA (SULFONAMIDE ANTIBIOTICS) (Unverified Allergy, Unknown, 12/24/14) Patient History Past Medical History: see triage record Past Surgical History: unable to obtain Pertinent Family History: none Last Menstrual Period: 07/2018 Now: Yes - 33 weeks : 3 Para: 2 Immunizations: UTD Reviewed Nursing Documentation: PMH: Agreed; PSxH: Agreed Nursing Documentation-PMH Hx Cardiac Problems: No Hx Asthma: Yes Hx Cancer: No Hx Gastrointestinal Problems: No - kidney stone Hx Neurological Problems: No Review of Systems All Other Systems: negative except mentioned in HPI Physical Exam Vital Signs Date Time Temp Pulse Resp B/P (MAP) Pulse Ox O2 Delivery O2 Flow Rate FiO2 02/26/19 15:17 98.2 98 18 103/64 (77) 98 Room Air Sp02 EP Interpretation: reviewed, normal General Appearance: no apparent distress, alert, GCS 15, non-toxic Head: normocephalic, atraumatic Eyes: bilateral eye normal inspection, bilateral eye PERRL ENT: hearing grossly normal, normal pharynx, no angioedema, normal voice Neck: normal inspection, full range of motion, supple Respiratory: chest non-tender, lungs clear, normal breath sounds, no wheezing, speaking full sentences Cardiovascular #1: regular rate, rhythm, no edema, no murmur Gastrointestinal: normal bowel sounds, non tender, soft, no guarding, no rebound, other - Gravid Rectal: deferred Musculoskeletal: normal inspection, back normal, digits/nails normal Neurologic: normal inspection, alert, oriented x3 Psychiatric: normal inspection, judgement/insight normal, memory normal Skin: rash - uritacarial rash all over body and on gravid abdomen at site of straie Lymphatic: no adenopathy Medical Decision Making PA Attestation All diagnoses and treatment plans were reviewed and discussed with my supervising physician Dr. Morocho Diagnostic Impression: Primary Impression: Allergic urticaria ER Course 23-year-old female who is 33 weeks here complaining of generalized body rash that started 3 days ago. Patient complaining of extreme pruritus however denies pain. Denies fever and chills, anaphylaxis, shortness of breath , chest pain, abdominal pain, nausea vomiting, vaginal discharge or bleeding. Patient reports that she is with a baby boy. Does not recall being exposed to any new allergens or being bit by an insect. Wears a urticarial rash is observed all over her body as well as on her stridor. No anaphylaxis noted. Patient has taken Benadryl with symptom relief. Ddx considered but are not limited to: Eczema, scabies, lice, Vital signs: are WNL, pt. is afebrile H&PE are most consistent with: Allergic urticaria also rash secondary due to high testosterone levels ORDERS: Hydrocortisone cream, triamcinolone cream as patient requested to creams for her symptoms. Benadryl ED INTERVENTIONS: None required at this time. DISCHARGE: At this time pt. is stable for d/c to home. Will provide printed patient care instructions, and any necessary prescriptions. Care plan and follow up instructions have been discussed with the patient prior to discharge. Advised the patient to follow-up with [facility] and not take any oral steroids. If worsening symptoms return to the emergency room Last Vital Signs Date Time Temp Pulse Resp B/P (MAP) Pulse Ox O2 Delivery O2 Flow Rate FiO2 02/26/19 15:17 98.2 98 18 103/64 (77) 98 Room Air Disposition: HOME, SELF-CARE Condition: Stable Scripts Triamcinolone Acet (Triamcinolone Acetonide) 15 Gm Cream..g. 2 GM APPLIC BID, #15 GM Prov: Shakira Amos 02/26/19 Diphenhydramine HCl (Benadryl) 25 Mg Capsule 25 MG PO TID, #21 CAP Prov: Shakira Amos 02/26/19 Hydrocortisone/Aloe Vera 1%* (HYDROCORTISONE-ALOE 1% CREAM*) Y Cr 1 APPLIC TOPIC Q6H PRN for Itching, #30 GM Prov: Shakira Amos 02/26/19 Referrals: [facility],REFERR[facility] (PCP) Patient Instructions: Allergies, [id number], Rash Additional Instructions: Take medication as directed follow-up with your [facility] avoid taking oral steroids Shakira Amos Feb 26, 2019 15:38
[2019-02-26] MEDS ORDERED: BENADRYL25 M3 PO (15:40)
[2019-02-26] MEDS ORDERED: HYDROCORTISONE-30 GM TOPIC (15:40)
[2019-02-26] MEDS ORDERED: KENALOG 0.5% CR15 GM APPLIC (15:40)
[2019-02-26 15:48] VITALS: BP 103/64
--- NOTE | 2019-02-26 15:48 | NUR ---
ER DISCHARGE NOTE: Patient is cleared to be discharged per CHARO NATHAN, pt is aox4, on room air, with stable vital signs. pt was given dc and prescription instructions, pt was able to verbalize understanding, pt id band removed without complications. pt is able to ambulate with steady gait. pt took all belongings.
== END 2019-02-26 15:48 | disposition home or self-care (01) ==
LOC: EMR 15:29
DX: O99.713 Diseases of the skin and subcutaneous tissue complicating pregnancy, third trimester (principal); L50.0 Allergic urticaria; Z3A.33 33 weeks gestation of pregnancy; O99.513 Diseases of the respiratory system complicating pregnancy, third trimester; J45.909 Unspecified asthma, uncomplicated; Z87.442 Personal history of urinary calculi; Z88.2 Allergy status to sulfonamides
CPT/HCPCS: 99282